=== PATIENT | female | born 1940 | race Asian ===

== ENCOUNTER → 2017-03-09 | Outpatient (CLI) | payer MEDICARE | LOC: WI 06:58 | PROVIDERS: ATTEND Family Medicine | DX: Z12.31 Encounter for screening mammogram for malignant neoplasm of breast (principal) | CPT/HCPCS: 77067; G0202 ==

== ENCOUNTER → 2017-08-02 | Outpatient (CLI) | payer MEDICARE ==
[2017-08-02 11:06] LABS: ALANINE AMINOTRANSFERASE 24 U/L (9-52); ALBUMIN 4.2 g/dL (3.5-5.0); ALKALINE PHOSPHATASE 80 U/L (38-126); ASPARTATE AMINO TRANSFERASE 29 U/L (14-36); BILIRUBIN,DIRECT 0.3 mg/dL (0.0-0.4); BILIRUBIN,TOTAL 0.5 mg/dL (0.2-1.3); CHOLESTEROL 148.42 mg/dL (0-200); Direct HDL 56 mg/dL (>40); MAGNESIUM 2.4 mg/dL (1.6-2.3); TOTAL PROTEIN 7.2 g/dL (6.3-8.2); TRIGLYCERIDES 126 mg/dL (<150)
[2017-08-02 11:13] LABS: ANION GAP 12 (5-19); BLOOD UREA NITROGEN 9 mg/dL (7-20); CALCIUM 9.4 mg/dL (8.4-10.2); CARBON DIOXIDE 28 mmol/L (22-30); CHLORIDE 107 mmol/L (98-107); CREATININE RESULT 0.76 mg/dL (0.52-1.25); GLUCOSE 99 mg/dL (75-110); POTASSIUM 4.6 mmol/L (3.6-5.0); SODIUM 146.8 mmol/L (137-145)
[2017-08-02 11:17] LABS: DIRECT LDL 63 mg/dL (<100)
== END ==
LOC: OD 10:04
PROVIDERS: ATTEND Internal Medicine Cardiovascular Disease
DX: E78.2 Mixed hyperlipidemia (principal); R00.2 Palpitations; Z79.899 Other long term (current) drug therapy
CPT/HCPCS: 36415; 80048; 80061; 80076; 83735; 84443

== ENCOUNTER → 2018-02-01 | Outpatient (CLI) | payer MEDICARE ==
[2018-02-01 10:55] LABS: ANION GAP 10 (5-19); BLOOD UREA NITROGEN 11 mg/dL (7-20); CALCIUM 9.9 mg/dL (8.4-10.2); CARBON DIOXIDE 29 mmol/L (22-30); CHLORIDE 107 mmol/L (98-107); GLUCOSE 96 mg/dL (75-110); POTASSIUM 4.5 mmol/L (3.6-5.0); SODIUM 146.2 mmol/L (137-145); TRIGLYCERIDES 225 mg/dL (<150)
[2018-02-01 11:06] LABS: DIRECT LDL 67 mg/dL (<100)
== END ==
LOC: OD 09:53
PROVIDERS: ATTEND Internal Medicine Cardiovascular Disease
DX: I10 Essential (primary) hypertension (principal); R00.2 Palpitations; E78.2 Mixed hyperlipidemia; Z79.899 Other long term (current) drug therapy
CPT/HCPCS: 36415; 80048; 80061; 84443

== ENCOUNTER → 2018-02-04 | Outpatient (CLI) | payer MEDICARE ==
--- NOTE | 2018-02-04 12:06 | WOMENS IMAGING REPORT ---
EXAM DESCRIPTION: BILAT SCREENING MAMMO W/CAD COMPLETED DATE/TIME: 02/04/2018 11:40 am REASON FOR STUDY: ROUTINE SCREENING;Z12.31 Z12.31 ENCNTR SCREEN MAMMOGRAM FOR MALIGNANT NEOPLASM OF HELENA COMPARISON: 03/09/2017 and 03/09/2016. TECHNIQUE: Standard craniocaudal and mediolateral oblique views of each breast recorded using digita l acquisition. LIMITATIONS: None. FINDINGS: No masses, calcifications or architectural distortion. No areas of suspicion. Read with the assistance of CAD. .[facility] - R2 Cenova Version 1.3 .[facility] - R2 Cenova Version 1.3 .[facility] - R2 Cenova Version 2.4 .[facility] - R2 Cenova Version 2.4 .[facility] - R2 Warehouse Inventory Clerk Version 9.2 IMPRESSION: NORMAL MAMMOGRAM. BIRADS 1. BREAST DENSITY: c. The breasts are heterogeneously dense, which may obscure small masses. BIRAD: 1 NEGATIVE RECOMMENDATION: ROUTINE SCREENING COMMENT: The patient has been notified of the results by letter per MQSA requirements. Additional no tification policies are in place for contacting patient with suspicious or incomplete findings. Quality ID #225: The [employer] [place] [employer] recommends an annual screening mammogram for women aged 40 years or over. This facility utilizes a reminder system to ensure that all patients receive reminder letters, and/or direct phone calls for appointments. This includes reminders for routine scr eening mammograms, diagnostic mammograms, or other Breast Imaging Interventions when appropriate. Th is patient will be placed in the appropriate reminder system. The [employer] [place] [employer] (ACR) has developed recommendations for screening MRI of the breast s in certain patient populations, to be used in conjunction with mammography. Breast MRI surveillanc e may be appropriate for women with more than 20% lifetime risk of developing breast cancer as deter mined by genetic testing, significant family history of the disease, or history of mantle radiation f or Hodgkins Disease. ACR Practice Guidelines 2008. TECHNICAL DOCUMENTATION: FINDING NUMBER: (1) ASSESSMENT: (1) JOB ID: [id number] [employer]- All Rights Reserved Reading location - IP/workstation name: [facility]-[email or web address]
== END ==
LOC: WI 09:53
PROVIDERS: ATTEND Family Medicine
DX: Z12.31 Encounter for screening mammogram for malignant neoplasm of breast (principal)
CPT/HCPCS: 77067

== ENCOUNTER 2018-06-17 08:25 | Day surgery (SDC) | payer MEDICARE ==
[2018-06-17] MEDS ORDERED: PROPOFOL INJ 200 MG/20 ML VIAL IV ONE (09:20)
[2018-06-17] MEDS ORDERED: DIPHENHYDRAMINE HCL 50 MG/ML VIAL IV PRN (10:26)
[2018-06-17] MEDS ORDERED: PROMETHAZINE HCL INJ 25 MG/1 ML VIAL IV PRN (10:26)
[2018-06-17] MEDS ORDERED: ONDANSETRON HCL INJ/PF 4 MG/2 ML SDV IV PRN (10:26)
--- NOTE | 2018-06-17 11:39 | Operative Report ---
Operative Report DATE OF SURGERY: 06/17/18 Operative Report: The risks, benefits and alternatives of the procedure including risks of bleeding, perforation requiring surgery are explained to the patient in detail and informed consent is obtained. Patient is brought back to the endoscopy suite and placed in the left, lateral decubital position. Timeout was called. Propofol medication is administered. A rectal examination is done which did not reveal any masses, tears or fissures. An Olympus videoscope was inserted into the patient's rectum. The scope was then carefully advanced all the way to the cecum. The cecum was identified by the usual anatomical landmarks including the ileocecal valve as well as the appendiceal office. Photodocumentation is obtained. The scope was then sequentially pulled back via the various segments of the colon including the ascending colon, hepatic flexure, transverse colon, splenic flexure, descending colon and finding to the rectosigmoid portions of the colon. Retroflexion maneuvers performed. The risks benefits and alternatives of the procedure explained to the patient in detail and informed consent is obtained.A GIF Olympus video scope was inserted into the patient's mouth and hypopharynx, the esophagus is identified intubated and insufflated, the scope was then advanced through the esophagus stomach and duodenum, retroflexion maneuver is done, the esophagus stomach and first and second portions of the duodenum examined PREOPERATIVE DIAGNOSIS: Dysphagia. Previously noted to have Helicobacter pylori that was not treated. Personal history of polyp POSTOPERATIVE DIAGNOSIS: Gastritis status post biopsy. Schatzki's ring status post biopsy and breakage. Hiatal hernia. Diverticulosis. Colon polyp in the sigmoid status post via biopsy. Internal hemorrhoids OPERATION: Colonoscopy with biopsy. EGD with biopsy SURGEON: GAY PALUMBO ANESTHESIA: LMAC TISSUE REMOVED OR ALTERED: As noted above. COMPLICATIONS: None. ESTIMATED BLOOD LOSS: None. INTRAOPERATIVE FINDINGS: As noted above. PROCEDURE: Patient tolerated the procedure well. No immediate postprocedure complications are noted. Patient discharged in good condition. Discharge date 06/17/2018. Discharge diet: Regular. Discharge activity: Regular. 2-3 week follow-up to discuss findings. Patient is instructed call the office or proceed to the emergency room should there be any further problems or questions.
[2018-06-17] MEDS ORDERED: DEXTROSE 5%-1/2 NORMAL SALINE 1,000 ML IV PRN (11:48)
[2018-06-17] MEDS ORDERED: ACETAMINOPHEN 325 MG TABLET PO PRN (12:00)
[2018-06-17] MEDS ORDERED: PROMETHAZINE HCL INJ 25 MG/1 ML VIAL INJ PRN (12:00)
[2018-06-17] MEDS ORDERED: SIMETHICONE 80 MG TAB.CHEW PO PRN (12:00)
[2018-06-17 13:16] VITALS: BP 152/69
--- NOTE | 2018-06-17 22:29 | EKG REPORT ---
SEVERITY:- NORMAL ECG - SINUS RHYTHM : Confirmed by: Lucia Ring MD 17-Jun-2018 22:28:46
== END 2018-06-17 12:30 | disposition home or self-care (01) ==
LOC: OROUT 08:25
PROVIDERS: ATTEND Internal Medicine Gastroenterology
DX: K63.5 Polyp of colon (principal); K57.30 Diverticulosis of large intestine without perforation or abscess without bleeding; B96.81 Helicobacter pylori [H. pylori] as the cause of diseases classified elsewhere; K64.8 Other hemorrhoids; K29.50 Unspecified chronic gastritis without bleeding; K22.2 Esophageal obstruction; K44.9 Diaphragmatic hernia without obstruction or gangrene; E78.2 Mixed hyperlipidemia; I10 Essential (primary) hypertension; K21.9 Gastro-esophageal reflux disease without esophagitis; M19.90 Unspecified osteoarthritis, unspecified site; F17.210 Nicotine dependence, cigarettes, uncomplicated; Z79.82 Long term (current) use of aspirin; Z79.899 Other long term (current) drug therapy; Z13.89 Encounter for screening for other disorder
CPT/HCPCS: 43239; 45380; 88342 ×2; 88305 ×2; 93005; 93010; J2704; 813

== ENCOUNTER 2018-07-29 08:20 | Day surgery (SDC) | payer MEDICARE ==
[~2018-07-29 08:20] MED LIST: DIPHENHYDRAMINE HCL 50 MG/ML VIAL ONE; EPINEPHRINE INJ 1 MG/10 ML DISP.SYRIN ONE; FENTANYL CITRATE INJ/PF 100 MCG/2 ML AMPUL ONE; FLUMAZENIL INJ 0.5 MG/5 ML VIAL ONE; GLUCAGON,HUMAN RECOMB 1 MG INJ ONE; NALOXONE HCL INJ/PF 0.4 MG/1 ML SDV ONE; ONDANSETRON HCL INJ/PF 4 MG/2 ML SDV ONE
[2018-07-29] MEDS: MIDAZOLAM 2 MG/2 ML INJ ONE ×3 (09:20→09:26)
--- NOTE | 2018-07-29 09:35 | Operative Report ---
Operative Report DATE OF SURGERY: 07/29/18 Operative Report: The risks benefits and alternatives of the procedure explained to the patient in detail and informed consent is obtained.A GIF Olympus video scope was inserted into the patient's mouth and hypopharynx, the esophagus is identified intubated and insufflated, the scope was then advanced through the esophagus stomach and duodenum, retroflexion maneuver is done, the esophagus stomach and first and second portions of the duodenum examined PREOPERATIVE DIAGNOSIS: History of H pylori gastritis. Barry's with dysplasia low-grade POSTOPERATIVE DIAGNOSIS: Duodenitis. Biopsies to reconfirm eradication of H. pylori. Radiofrequency ablation of Barry's esophagus OPERATION: EGD with ablation. EGD with biopsy SURGEON: GAY PALUMBO ANESTHESIA: Moderate Sedation - 4 mg of Versed, 25 mcg of fentanyl. Conscious sedation monitoring time 30 minutes. TISSUE REMOVED OR ALTERED: As noted above COMPLICATIONS: None. ESTIMATED BLOOD LOSS: None. INTRAOPERATIVE FINDINGS: As noted above. PROCEDURE: Patient tolerated procedure well. No immediate postprocedure complications are noted. Patient discharged in good condition. Discharge date 07/29/2018. Discharge diet: Regular. Discharge activity: Regular. 2-3 week follow-up to discuss findings. Patient is instructed to call the office or proceed to the emergency room should there be any further problems or questions. Wait on the pathology.
[2018-07-29 10:41] VITALS: BP 126/65
== END 2018-07-29 10:50 | disposition home or self-care (01) ==
LOC: END 08:20
PROVIDERS: ATTEND Internal Medicine Gastroenterology
DX: K29.50 Unspecified chronic gastritis without bleeding (principal); K29.80 Duodenitis without bleeding; K21.9 Gastro-esophageal reflux disease without esophagitis; I10 Essential (primary) hypertension; M19.90 Unspecified osteoarthritis, unspecified site; E78.5 Hyperlipidemia, unspecified; F17.210 Nicotine dependence, cigarettes, uncomplicated; Z79.899 Other long term (current) drug therapy; Z79.82 Long term (current) use of aspirin
CPT/HCPCS: 43270; 43239; 88342 ×2; 88305 ×2; J2250; J3010; J0171; J1200; J1610; J2310; J2405; J3490

== ENCOUNTER → 2018-09-08 | Outpatient (CLI) | payer MEDICARE ==
[2018-09-08 09:35] LABS: ANION GAP 9 (5-19); BLOOD UREA NITROGEN 13 mg/dL (7-20); CALCIUM 9.3 mg/dL (8.4-10.2); CARBON DIOXIDE 30 mmol/L (22-30); CHLORIDE 104 mmol/L (98-107); CHOLESTEROL 138.07 mg/dL (0-200); GLUCOSE 80 mg/dL (75-110); POTASSIUM 4.6 mmol/L (3.6-5.0); SODIUM 142.6 mmol/L (137-145); TRIGLYCERIDES 114 mg/dL (<150)
[2018-09-08 09:47] LABS: DIRECT LDL 59 mg/dL (<100)
== END ==
LOC: OD 07:52
PROVIDERS: ATTEND Internal Medicine Cardiovascular Disease
DX: E78.2 Mixed hyperlipidemia (principal); R00.2 Palpitations
CPT/HCPCS: 36415; 80048; 80061; 84443

== ENCOUNTER → 2018-10-21 | Outpatient (CLI) | payer MEDICARE ==
--- NOTE | 2018-10-21 11:29 | RADIOLOGY REPORT (SQ) ---
EXAM DESCRIPTION: CT ABD/PELVIS WITH IV ORAL COMPLETED DATE/TIME: 10/21/2018 10:36 am REASON FOR STUDY: R10.84 GENERALIZED ABDOMINAL PAIN R10.84 GENERALIZED ABDOMINAL PAIN COMPARISON: 05/05/2016 CT abdomen pelvis TECHNIQUE: CT scan of the abdomen and pelvis performed using helical scanning technique with dynamic intravenous contrast injection. Patient drank oral contrast. Images reviewed with lung, soft tissue , and bone windows. Reconstructed coronal and sagittal MPR images reviewed. Delayed images for evalua tion of the urinary system also acquired. All images stored on PACS. All CT scanners at this facility use dose modulation, iterative reconstruction, and/or weight based d osing when appropriate to reduce radiation dose to as low as reasonably achievable (ALARA). [facility]: Dose Right [facility]: CareDose [facility]: Dose Right [facility]: Teradose 4D [facility]: Cloud[employer] CONTRAST TYPE AND DOSE: contrast/concentration: Isovue 370.00 mg/ml; Total Contrast Delivered: 46.0 ml; Total Saline Delivered: 55.0 ml RENAL FUNCTION: Creatinine 1.5 RADIATION DOSE: CT Rad equipment meets quality standard of care and radiation dose reduction techniq ues were employed. CTDIvol: 2.3 - 3.3 mGy. DLP: 276 mGy-cm.. LIMITATIONS: None. FINDINGS: LOWER CHEST: Moderate left pleural effusion LIVER: Normal size. No masses. No dilated ducts. SPLEEN: Normal size. No focal lesions. PANCREAS: No masses. No significant calcifications. No adjacent inflammation or peripancreatic fluid collections. Pancreatic duct not dilated. GALLBLADDER: No identified stones by CT criteria. No inflammatory changes to suggest cholecystitis. ADRENAL GLANDS: No significant masses or asymmetry. RIGHT KIDNEY AND URETER: No solid masses. No significant calcifications. No hydronephrosis or hyd roureter. LEFT KIDNEY AND URETER: No solid masses. No significant calcifications. No hydronephrosis or hydr oureter. AORTA AND VESSELS: No aneurysm. No dissection. Renal arteries, SMA, celiac without stenosis. RETROPERITONEUM: Multiple retroperitoneal lymph nodes are present, the largest is along the left anna l vein, 3.1 x 2.2 cm in size. BOWEL AND PERITONEAL CAVITY: Is there is a moderate amount of ascites throughout the peritoneal space . Peritoneal implants are present in the adnexa and omentum. Findings are worrisome for peritoneal carcinomatosis, possibly from ovarian malignancy. Patient drank oral contrast. No CT evidence of bowel obstruction. No free intraperitoneal air. APPENDIX: Normal. PELVIS: Enlarged bilateral ovaries, peritoneal carcinomatosis in the posterior cul-de-sac. Moderate ascites in the pelvis. Uterus normal size. No adenopathy. ABDOMINAL WALL: No masses. No hernias. BONES: No significant or acute findings. OTHER: No other significant finding. IMPRESSION: Malignant ascites with peritoneal carcinomatosis. Suspect ovarian cancer. Report gutierres d to Dr. Huerta's nurse TECHNICAL DOCUMENTATION: JOB ID: [id number] Quality ID # [id number]: Final reports with documentation of one or more dose reduction techniques (e.g., Au tomated exposure control, adjustment of the mA and/or kV according to patient size, use of iterative reconstruction technique) 2010 [employer]- All Rights Reserved Reading location - IP/workstation name: [facility]-[email or web address]
== END ==
LOC: RAD 10:26
PROVIDERS: ATTEND Family Medicine
DX: R10.84 Generalized abdominal pain (principal)
CPT/HCPCS: 74177; 82565

== ENCOUNTER 2018-11-03 10:46 | Day surgery (SDC) | payer MEDICARE ==
[2018-11-03 11:31] LABS: HEMATOCRIT 33.2 % (36.0-47.0); MEAN CORPUSCULAR HEMOGLOBIN 28.9 pg (27.0-33.4); MEAN CORPUSCULAR HGB CONC 33.1 g/dL (32.0-36.0); MEAN CORPUSCULAR VOLUME 87 fl (80-97); PLATELET COUNT 405 10^3/uL (150-450); WHITE BLOOD COUNT 6.4 10^3/uL (4.0-10.5)
[2018-11-03 11:32] LABS: INTERNATIONAL RATION (INR) 0.97; PROTHROMBIN TIME 13.4 SEC (11.4-15.4)
[2018-11-03 11:33] LABS: PARTIAL THROMBOPLASTIN TIME 41.2 SEC (23.5-35.8)
[2018-11-03 11:46] LABS: BLOOD UREA NITROGEN 10 mg/dL (7-20)
--- NOTE | 2018-11-03 15:00 | RADIOLOGY REPORT (SQ) ---
EXAM DESCRIPTION: U/S ABD PARACENTESIS COMPLETED DATE/TIME: 11/03/2018 2:41 pm REASON FOR STUDY: ASCITES R18.8 OTHER ASCITES Z79.01 NURSING HOME (CURRENT) USE OF ANTICOAGULANTS COMPARISON: None. LIMITATIONS: None. PROCEDURE: Procedure, risks, benefit, and alternative explained to patient who then gave written con sent. The right lower quadrant abdominal wall marked using ultrasound guidance. A time-out was call ed for correct marking verification. Abdomen prepped and draped using sterile technique. Local anest hesia achieved using Three ml of 1% lidocaine injection. A 6fr Opcd-Z-Lxpqvikw set was introduced in to the peritoneal cavity. Fluid was drained. The catheter was removed and entry site was covered wi th sterile bandage. No immediate complications noted. Images acquired during the procedure were stored on PACS. FINDINGS: ENTRY SITE: Right lower quadrant. FLUID VOLUME: 900 cc FLUID ANALYSIS: Dark linda OTHER: Fluid sent to the lab for testing. IMPRESSION: SUCCESSFUL ULTRASOUND GUIDED PARACENTESIS. COMMENT: Patient medication list reviewed:Yes- Quality ID# [id number]:Eligible professional attests to docu menting in the medical record they obtained, updated, or reviewed the patient's current medications. TECHNICAL DOCUMENTATION: JOB ID: [id number] [email or web address]- All Rights Reserved Reading location - IP/workstation name: [facility]
[2018-11-03 15:22] LABS: FLUID TYPE PERITONEAL
[2018-11-03 15:23] LABS: FLUID APPEARANCE HAZY; FLUID COLOR AMBER; FLUID SOURCE ABDOMEN; FLUID VISCOSITY LIQUID
[2018-11-03 15:47] VITALS: BP 140/70
== END 2018-11-03 15:20 | disposition home or self-care (01) ==
LOC: RAD 10:46
PROVIDERS: ATTEND Internal Medicine
DX: R18.8 Other ascites (principal); C56.1 Malignant neoplasm of right ovary; E78.5 Hyperlipidemia, unspecified; I10 Essential (primary) hypertension; Z79.82 Long term (current) use of aspirin; K21.9 Gastro-esophageal reflux disease without esophagitis; Z79.899 Other long term (current) drug therapy; M19.90 Unspecified osteoarthritis, unspecified site; F17.210 Nicotine dependence, cigarettes, uncomplicated
CPT/HCPCS: 36415; 49083; 82565; 84520; 85027; 85610; 85730; 87070; 87075; 87205; 88305; 88341; 88342; 89050; 96365

== ENCOUNTER → 2018-11-06 | Outpatient (CLI) | payer MEDICARE ==
--- NOTE | 2018-11-07 09:17 | RADIOLOGY REPORT (SQ) ---
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 TECHNIQUE: Blood glucose level was verified. Above dose of FDG was injected intravenously. 2-D seg mented attenuation correction images were obtained from the base of the skull to the midthighs. Nonc ontrast CT images were obtained for attenuation correction and fusion with emission images. CT image s were performed without oral or intravenous contrast and are not sensitive for parenchymal lesions. A series of overlapping emission PET images were obtained. Images [facility] and [facility] by the radiologist. Images stored on PACS. LIMITATIONS: None. FINDINGS: HEAD AND NECK: Less than 5 mm supraclavicular lymph node on the left, SUV 2.0. CHEST: Prevascular adenopathy 2.6 x 0.8 cm in size with SUV 5.3 Aortopulmonary window lymph nodes 2.3 x 1 cm SUV 3.5 Moderate left pleural effusion with minimal left pleural uptake, similar compared to CT 10/21/2018 ABDOMEN AND PELVIS: Diffuse peritoneal implants are present, ranging in metabolic activity from 6.5 to 8.5. Left retroperitoneal adenopathy 3.1 x 2.2 cm in size with SUV 5.3 Small amount of ascites in the abdomen and pelvis, decreased compared to CT abdomen pelvis 10/21/2018 PROXIMAL LOWER EXTREMITIES: No areas of abnormal metabolic activity in the soft tissues of the lower extremities. BONES: No abnormal metabolic activity in the visualized skeleton. ADDITIONAL CT FINDINGS: Colonic diverticuli without CT signs of acute diverticulitis. OTHER: No other significant findings. IMPRESSION: Left supraclavicular, prevascular, aortopulmonary window and retroperitoneal malignant l ymph nodes Diffuse peritoneal implants TECHNICAL DOCUMENTATION: JOB ID: [id number]- All Rights Reserved Reading location - IP/workstation name: [email or web address]
== END ==
LOC: RAD 17:25
PROVIDERS: ATTEND Internal Medicine
DX: C56.1 Malignant neoplasm of right ovary (principal)
CPT/HCPCS: 78815; A9552

== ENCOUNTER → 2018-11-11 | Day surgery (SDC) | payer MEDICARE ==
[~2018-11-11] MED LIST changes: -DIPHENHYDRAMINE HCL 50 MG/ML VIAL ONE; -EPINEPHRINE INJ 1 MG/10 ML DISP.SYRIN ONE; -FENTANYL CITRATE INJ/PF 100 MCG/2 ML AMPUL ONE; -FLUMAZENIL INJ 0.5 MG/5 ML VIAL ONE; -GLUCAGON,HUMAN RECOMB 1 MG INJ ONE; +LIDOCAINE 1% INJ-PF (10 MG/ML) 30 ML SDV ONE; +MIDAZOLAM 2 MG/2 ML INJ ONE; -NALOXONE HCL INJ/PF 0.4 MG/1 ML SDV ONE; -ONDANSETRON HCL INJ/PF 4 MG/2 ML SDV ONE
[2018-11-11 09:48] LABS: HEMATOCRIT 32.5 % (36.0-47.0); HEMOGLOBIN 10.7 g/dL (12.0-15.5); MEAN CORPUSCULAR HEMOGLOBIN 28.9 pg (27.0-33.4); MEAN CORPUSCULAR HGB CONC 32.8 g/dL (32.0-36.0); MEAN CORPUSCULAR VOLUME 88 fl (80-97); PLATELET COUNT 288 10^3/uL (150-450); RED BLOOD COUNT 3.69 10^6/uL (3.72-5.28); RED CELL DISTRIBUTION WIDTH 18.8 % (11.5-14.0); WHITE BLOOD COUNT 4.3 10^3/uL (4.0-10.5)
[2018-11-11 09:53] LABS: INTERNATIONAL RATION (INR) 0.94
[2018-11-11 09:54] LABS: PARTIAL THROMBOPLASTIN TIME 36.8 SEC (23.5-35.8)
[2018-11-11 10:09] LABS: BLOOD UREA NITROGEN 10 mg/dL (7-20)
--- NOTE | 2018-11-11 13:13 | RADIOLOGY REPORT (SQ) ---
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 CT Fluoroscopy Time: 5.[address] scanners at this facility use dose modulation, iterative reconstruction, and/or weight based d osing when appropriate to reduce radiation dose to as low as reasonably achievable (ALARA). [facility]: Dose Right [facility]: CareDose [facility]: Dose Right [facility]: Teradose 4D [facility]: Smart [employer] RADIATION DOSE: mGy. FINDINGS: After obtaining informed consent and explaining the risks and benefits of conscious sedati on,the patient agreed to the procedure. Prior to the procedure, a time out was performed to verify th e patient's identity and planned procedure. IV sedation was administered and physician direction by the registered nurse using 1.5 milligrams of Versed, for conscious sedation. Patient is allergic to opioid medications. Physiologic monitoring w as provided before, during, and after sedation. The total sedation time was 30 minutes. Documentation face to face time, the performing proceduralist, spent monitoring the patient: [address] scanning was performed to localize the percutaneous site for the biopsy approach. After sterile skin prep and local lidocaine for skin and deep tissue anesthesia, a coaxial 19 gauge b iopsy needle was used to obtain multiple cores of tissue from the left retroperitoneal lymph nodes ju st inferior to the level of the left renal artery and vein. The biopsy tissue was submitted to Chika garcia from cytology. She stated that the samples were adequate for tissue diagnosis. There were no immed iate complications. Pathology is pending at the time of dictation. IMPRESSION: CT GUIDED BIOPSY OF THE LEFT RETROPERITONEAL LYMPH NODES PERFORMED WITHOUT IMMEDIATE COM PLICATION. PATHOLOGY PENDING. COMMENT: Quality ID 145: Final reports for procedures using fluoroscopy that document radiation exp osure indices, or exposure time and number of fluorographic images (if radiation exposure indices are not available) Patient medication list reviewed: Yes- Quality ID# 130:Eligible professional attests to documenting i n the medical record they obtained, updated, or reviewed the patient's current medications.. TECHNICAL DOCUMENTATION: JOB ID: [id number] Quality ID# 436: Final reports with documentation of one or more dose reduction techniques (e.g., Aut omated exposure control, adjustment of the mA and/or kV according to patient size, use of iterative r econstruction technique) 2010 [employer]- All Rights Reserved Reading location - IP/workstation name: [facility]
--- NOTE | 2018-11-11 13:13 | RADIOLOGY REPORT (SQ) ---
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 CT Fluoroscopy Time: 5.[address] scanners at this facility use dose modulation, iterative reconstruction, and/or weight based d osing when appropriate to reduce radiation dose to as low as reasonably achievable (ALARA). [facility]: Dose Right [facility]: CareDose [facility]: Dose Right [facility]: Teradose 4D [facility]: [employer] RADIATION DOSE: mGy. FINDINGS: After obtaining informed consent and explaining the risks and benefits of conscious sedati on,the patient agreed to the procedure. Prior to the procedure, a time out was performed to verify th e patient's identity and planned procedure. IV sedation was administered and physician direction by the registered nurse using 1.5 milligrams of Versed, for conscious sedation. Patient is allergic to opioid medications. Physiologic monitoring w as provided before, during, and after sedation. The total sedation time was 30 minutes. Documentation face to face time, the performing proceduralist, spent monitoring the patient: [address] scanning was performed to localize the percutaneous site for the biopsy approach. After sterile skin prep and local lidocaine for skin and deep tissue anesthesia, a coaxial 19 gauge b iopsy needle was used to obtain multiple cores of tissue from the left retroperitoneal lymph nodes ju st inferior to the level of the left renal artery and vein. The biopsy tissue was submitted to Chika garcia from cytology. She stated that the samples were adequate for tissue diagnosis. There were no immed iate complications. Pathology is pending at the time of dictation. IMPRESSION: CT GUIDED BIOPSY OF THE LEFT RETROPERITONEAL LYMPH NODES PERFORMED WITHOUT IMMEDIATE COM PLICATION. PATHOLOGY PENDING. COMMENT: Quality ID 145: Final reports for procedures using fluoroscopy that document radiation exp osure indices, or exposure time and number of fluorographic images (if radiation exposure indices are not available) Patient medication list reviewed: Yes- Quality ID# 130:Eligible professional attests to documenting i n the medical record they obtained, updated, or reviewed the patient's current medications.. TECHNICAL DOCUMENTATION: JOB ID: [id number] Quality ID# 436: Final reports with documentation of one or more dose reduction techniques (e.g., Aut omated exposure control, adjustment of the mA and/or kV according to patient size, use of iterative r econstruction technique) 2010 [employer]- All Rights Reserved Reading location - IP/workstation name: [facility]
[2018-11-11 14:47] VITALS: BP 120/60
== END | disposition home or self-care (01) ==
LOC: RAD 08:22
PROVIDERS: ATTEND Internal Medicine
DX: C56.1 Malignant neoplasm of right ovary (principal); R59.1 Generalized enlarged lymph nodes; M19.90 Unspecified osteoarthritis, unspecified site; E78.5 Hyperlipidemia, unspecified; I10 Essential (primary) hypertension; K21.9 Gastro-esophageal reflux disease without esophagitis; Z79.82 Long term (current) use of aspirin; Z79.899 Other long term (current) drug therapy; F17.210 Nicotine dependence, cigarettes, uncomplicated; Z79.01 Long term (current) use of anticoagulants
CPT/HCPCS: 36415; 84520; 82565; 85027; 85610; 85730; 88342 ×2; 88341 ×2; 88305 ×2; 77012; 49180; J2250; J3490

== ENCOUNTER → 2019-01-27 | Outpatient (CLI) | payer MEDICARE ==
--- NOTE | 2019-01-27 10:36 | RADIOLOGY REPORT (SQ) ---
EXAM DESCRIPTION: CT CHEST WITH; CT ABD/PELVIS WITH IV ORAL COMPLETED DATE/TIME: 01/27/2019 9:37 am REASON FOR STUDY: OVARIAN CA C56.1 MALIGNANT NEOPLASM OF RIGHT OVARY COMPARISON: CT chest 10/31/2008 CT abdomen pelvis 05/05/2016, 10/21/2018 PET-CT 11/06/2018 CONTRAST TYPE AND DOSE: contrast/concentration: Isovue 350.00 mg/ml; Total Contrast Delivered: 45.0 ml; Total Saline Delivered: 51.0 ml RENAL FUNCTION: Creatinine 0.7 TECHNIQUE: CT scan of the chest performed using helical scanning technique with dynamic intravenous contrast injection. Images reviewed with lung, soft tissue and bone windows. Reconstructed coronal a nd sagittal MPR images reviewed. All images stored on PACS. CT scan of the abdomen and pelvis performed with intravenous and with oral contrastusing helical scan zoey technique with dynamic intravenous contrast injection. Images reviewed with lung, soft tissue a nd bone windows. Reconstructed coronal and sagittal MPR images reviewed. Delayed images for evaluat ion of the urinary system also acquired and evaluated. All images stored on PACS. All CT scanners at this facility use dose modulation, iterative reconstruction, and/or weight based d osing when appropriate to reduce radiation dose to as low as reasonably achievable (ALARA). [facility]: Dose Right [facility]: CareDose [facility]: Dose Right [facility]: Teradose 4D [facility]: [employer] RADIATION DOSE: CT Rad equipment meets quality standard of care and radiation dose reduction techniq ues were employed. CTDIvol: 4.4 - 4.5 mGy. DLP: 574 mGy-cm. . LIMITATIONS: None. FINDINGS: CHEST: LUNGS AND PLEURA: Obstructive lung disease is present with pulmonary fibrosis at the lung bases. No worrisome pulmonary nodules. No pleural effusion. No focal infiltrates. Airways are patent. HILAR AND MEDIASTINAL STRUCTURES: No identified masses or abnormal nodes. HEART AND VASCULAR STRUCTURES: No aneurysm or dissection. No central pulmonary emboli. No pericardi al effusion. HARDWARE: None. THYROID AND OTHER SOFT TISSUES: No masses. No adenopathy. BONES: No significant finding. OTHER: No other significant finding. ABDOMEN AND PELVIS: LIVER: Normal size. No masses. No dilated ducts. SPLEEN: Normal size. No focal lesions. PANCREAS: No masses. No significant calcifications. No adjacent inflammation or peripancreatic fluid collections. Pancreatic duct not dilated. GALLBLADDER: No identified stones by CT criteria. No inflammatory changes to suggest cholecystitis. ADRENAL GLANDS: No significant masses or asymmetry. RIGHT KIDNEY AND URETER: No solid masses. No significant calcification. No hydronephrosis or hydroure ter. LEFT KIDNEY AND URETER: No solid masses. No significant calcification. No hydronephrosis or hydrouret er. AORTA AND VESSELS: No aneurysm. No dissection. Renal arteries, SMA, celiac without stenosis. RETROPERITONEUM: No retroperitoneal adenopathy, hemorrhage or masses. Previously biopsied adenopathy has resolved. BOWEL AND PERITONEAL CAVITY: Patient drank oral contrast. No bowel obstruction. No masses or inflam matory changes. No free fluid or peritoneal masses. APPENDIX: Normal. ABDOMINAL WALL: No masses. No hernias. PELVIS: No mass or free fluid. Normal bladder. Normal size female pelvic organs. BONES: No significant or acute findings. OTHER: No other significant finding. IMPRESSION: No CT evidence of metastatic ovarian cancer to the chest abdomen or pelvis TECHNICAL DOCUMENTATION: JOB ID: [id number] Quality ID # 436: Final reports with documentation of one or more dose reduction techniques (e.g., Au tomated exposure control, adjustment of the mA and/or kV according to patient size, use of iterative reconstruction technique) 2010 [employer]- All Rights Reserved Reading location - IP/workstation name: [facility]
== END ==
LOC: RAD 08:42
PROVIDERS: ATTEND Internal Medicine
DX: C56.1 Malignant neoplasm of right ovary (principal); J84.10 Pulmonary fibrosis, unspecified
CPT/HCPCS: 71260; 74177; 82565

== ENCOUNTER 2019-02-21 10:19 | Emergency (ER) | payer MEDICARE ==
[2019-02-21] MEDS ORDERED: ONDANSETRON HCL INJ/PF 4 MG/2 ML SDV IV ONE ×2 (10:43→16:08)
[2019-02-21] MEDS ORDERED: NORMAL SALINE 1000 ML 1,000 ML IV ONE (10:43)
--- NOTE | 2019-02-21 10:46 | ER Document Report ---
ED Medical Screen (RME) - General Chief Complaint: Abdominal Pain Stated Complaint: WEAKNESS Time Seen by Provider: 02/21/19 10:35 Primary Care Provider: SONIDO GUEVARA MD [Primary Care Provider] - Follow up as needed TRAVEL OUTSIDE OF THE [place] IN LAST 30 DAYS: No - HPI Notes: 02/21/19 10:44 Patient is a 79-year-old female who presents emergency department complaining of generalized abdominal pain, decreased p.o. intake, nausea, watery diarrhea after having surgery for ovarian cancer 8 days ago which I suspect to be a total hysterectomy at [facility]. Patient states that the pain increased over the last 2 days. Denies any headache, fever, neck pain, URI, sore throat, chest pain, palpitations, syncope, cough, shortness of breath, wheeze, dyspnea, urinary retention, dysuria, hematuria, or rash. I have treated and performed a rapid initial assessment of this patient. A comprehensive ED assessment and evaluation of the patient, analysis of test results and completion of medical decision making process will be conducted by additional ED providers. PHYSICAL EXAMINATION: GENERAL: appears uncomfortable and holding her abd. no resp distress LUNGS: Breath sounds clear to auscultation bilaterally and equal. No wheezes rales or rhonchi. HEART: Regular rate and rhythm without murmurs, rubs, gallops. ABDOMEN: BS present. + generalized tenderness. Extremities: No cyanosis, clubbing, or edema b/l. NEUROLOGICAL: Normal speech, normal gait. PSYCH: Normal mood, normal affect. - Related Data Allergies/Adverse Reactions: Any type medication Allergy (Severe, Uncoded 06/17/18 09:21) Facial swelling and Problems Breathing Past Medical History - Social History Frequency of alcohol use: None Drug Abuse: None - Past Medical History Cardiac Medical History: Reports: Hx Hypercholesterolemia, Hx Hypertension Denies: Hx Coronary Artery Disease, Hx Heart Attack Pulmonary Medical History: Denies: Hx Asthma, Hx Bronchitis, Hx COPD, Hx Pneumonia Neurological Medical History: Denies: Hx Cerebrovascular Accident, Hx Seizures Renal/ Medical History: Denies: Hx Peritoneal Dialysis Musculoskeltal Medical History: Reports Hx Arthritis Past Surgical History: Reports: Hx Hysterectomy. Denies: Hx Pacemaker - Immunizations Hx Diphtheria, Pertussis, Tetanus Vaccination: No Influenza Administration Date for 08/2017 - 01/2018 Season: 11/22/17 Physical Exam - Vital signs Vitals: Temp Pulse Resp BP Pulse Ox 97.7 F 115 H 18 140/55 H 98 02/21/19 10:31 02/21/19 10:31 02/21/19 10:31 02/21/19 10:31 02/21/19 10:31 Course - Vital Signs Vital signs: Temp Pulse Resp BP Pulse Ox 97.7 F 115 H 18 140/55 H 98 02/21/19 10:31 02/21/19 10:31 02/21/19 10:31 02/21/19 10:31 02/21/19 10:31 Doctor's Discharge - Discharge Referrals: SONIDO GUEVARA MD [Primary Care Provider] - Follow up as needed
[2019-02-21 11:29] LABS: ABSOLUTE LYMPHOCYTES (AUTO) 1.4 10^3/uL (0.5-4.7); ABSOLUTE MONOCYTES (AUTO) 0.8 10^3/uL (0.1-1.4); ABSOLUTE NEUT (AUTO) 8.2 10^3/uL (1.7-8.2); APPEARANCE,URINE SLIGHTLY-CLOUDY; BASOPHILS % (AUTO) 0.1 % (0-2); BILIRUBIN,URINE NEGATIVE (NEGATIVE); COLOR,URINE YELLOW; EOSINOPHILS % (AUTO) 0.1 % (0-6); GLUCOSE, URINE NEGATIVE (NEGATIVE); HEMATOCRIT 32.1 % (36.0-47.0); HEMOGLOBIN 11.1 g/dL (12.0-15.5); KETONES,URINE 20 mg/dL (NEGATIVE); LEUKOCYTE ESTERASE,URINE NEGATIVE (NEGATIVE); LYMPHOCYTES % (AUTO) 13.6 % (13-45); MEAN CORPUSCULAR HEMOGLOBIN 33.6 pg (27.0-33.4); MEAN CORPUSCULAR HGB CONC 34.7 g/dL (32.0-36.0); MEAN CORPUSCULAR VOLUME 97 fl (80-97); MONOCYTES % (AUTO) 7.7 % (3-13); NITRITE,URINE NEGATIVE (NEGATIVE); PLATELET COUNT 318 10^3/uL (150-450); PROTEIN,URINE 30 mg/dL (NEGATIVE); RED BLOOD COUNT 3.32 10^6/uL (3.72-5.28); RED CELL DISTRIBUTION WIDTH 18.6 % (11.5-14.0); SEGMENTED NEUTROPHILS % (AUTO) 78.5 % (42-78); TOTAL CELLS COUNTED % (AUTO) 100 %; URINE SPECIFIC GRAVITY 1.016; WHITE BLOOD COUNT 10.4 10^3/uL (4.0-10.5)
[2019-02-21 11:50] LABS: ALANINE AMINOTRANSFERASE 32 U/L (9-52); ALBUMIN 3.8 g/dL (3.5-5.0); ALKALINE PHOSPHATASE 300 U/L (38-126); ANION GAP 16 (5-19); ASPARTATE AMINO TRANSFERASE 40 U/L (14-36); BILIRUBIN,DIRECT 0.7 mg/dL (0.0-0.4); BILIRUBIN,TOTAL 1.2 mg/dL (0.2-1.3); BLOOD UREA NITROGEN 19 mg/dL (7-20); CALCIUM 8.9 mg/dL (8.4-10.2); CARBON DIOXIDE 24 mmol/L (22-30); CHLORIDE 96 mmol/L (98-107); GLUCOSE 129 mg/dL (75-110); LIPASE 36.3 U/L (23-300); POTASSIUM 3.4 mmol/L (3.6-5.0); SODIUM 136.1 mmol/L (137-145); TOTAL PROTEIN 7.5 g/dL (6.3-8.2)
--- NOTE | 2019-02-21 11:54 | ER Document Report ---
ED GI/ - General Chief Complaint: Abdominal Pain Stated Complaint: WEAKNESS Time Seen by Provider: 02/21/19 10:35 Primary Care Provider: SONIDO GUEVARA MD [ACTIVE STAFF] - Follow up as needed Notes: Patient had surgery 8 days ago at [facility] to remove all of her female parts. She was diagnosed with ovarian cancer several months ago. She had 3 treatments with chemo and then it was decided she needed to have surgery. Surgery was performed at [facility] and the patient went home Wednesday. Since then, she is not eating, not drinking much fluid. She is nauseated but not vomiting. She had 2 watery diarrhea episodes this morning. Complaining of pain over the entire abdomen, but primarily in the left upper quadrant region. Has not noted any fever. TRAVEL OUTSIDE OF THE [place] IN LAST 30 DAYS: No - Related Data Allergies/Adverse Reactions: Any type medication Allergy (Severe, Uncoded 06/17/18 09:21) Facial swelling and Problems Breathing Past Medical History - Social History Smoking Status: Former Smoker - Stopped about 3 or 4 years ago. Frequency of alcohol use: None Drug Abuse: None Family History: Reviewed & Not Pertinent Patient has suicidal ideation: No Patient has homicidal ideation: No - Past Medical History Cardiac Medical History: Reports: Hx Hypercholesterolemia, Hx Hypertension Musculoskeletal Medical History: Reports Hx Arthritis Past Surgical History: Reports: Hx Hysterectomy - Immunizations Hx Diphtheria, Pertussis, Tetanus Vaccination: No Review of Systems - Review of Systems Notes: REVIEW OF SYSTEMS: CONSTITUTIONAL : Denies fever. EENT: Denies eye, ear, nose or mouth or throat pain or other symptoms. CARDIOVASCULAR: Denies chest pain. RESPIRATORY: Denies cough, chest congestion, or shortness of breath. GASTROINTESTINAL: See HPI. GENITOURINARY: Denies difficulty or painful urinating, urinary frequency, blood in urine. MUSCULOSKELETAL: Denies back or neck pain. Denies joint pain or swelling. SKIN: Denies rash or skin lesions. NEUROLOGICAL: Denies LOC or altered mental status. Denies headache. Denies sensory loss or motor deficits. ALL OTHER SYSTEMS REVIEWED AND NEGATIVE. Physical Exam - Vital signs Vitals: Temp Pulse Resp BP Pulse Ox 97.7 F 115 H 18 140/55 H 98 02/21/19 10:31 02/21/19 10:31 02/21/19 10:31 02/21/19 10:31 02/21/19 10:31 Interpretation: Tachycardic. No: Febrile Notes: PHYSICAL EXAMINATION: GENERAL: Well-appearing, in no acute distress. Vital signs are all normal except for slight tachycardia. HEAD: Atraumatic, normocephalic. EYES: Pupils equal round and reactive to light, extraocular movements intact. ENT: oropharynx clear without exudates. Moist mucous membranes. NECK: Normal range of motion, supple. LUNGS: Breath sounds clear and equal bilaterally. HEART: Regular rate and rhythm without murmurs. ABDOMEN: Laparoscopic entry sites in the abdomen all look well and without evidence of infection. Basically, the abdomen is soft but does have diffuse tenderness, may be more so in the upper abdomen than lower. BACK: No tenderness throughout entire back. EXTREMITIES: Normal range of motion without pain. NEUROLOGICAL: Normal speech, normal gait. Normal sensory, motor, and reflex exams. Awake, alert, and oriented x3. Cranial nerves normal. PSYCH: Normal mood, normal affect. SKIN: Warm, dry, no rashes. Course - Re-evaluation Re-evalutation: 02/21/19 16:12 Lab results were not very significantly abnormal. Potassium was 3.4 and the patient was given 40 mEq of p.o. potassium. Creatinine and BUN were normal. LFTs essentially normal except for slightly elevated alkaline phosphatase of 300. Lipase 36. CBC had a white count of 10,400. Hemoglobin 11.1. Urinalysis without any evidence of infection. 02/21/19 16:32 At the time of discharge, nurse took vital signs and found the patient to be febrile. Rectal temp about 102. says the patient has been running some fevers in the evenings since coming home. They did not tell me this earlier. We have done a chest x-ray here which did not show any acute pulmonary disease. We have done a urinalysis which did not look like any infection. We have also done a CBC showing a white count of only 10,000 without any significant shift. Has been ambulating around the emergency depart . I have ordered a couple of blood cultures and I have decided to give the patient 1 gram of Rocephin IV and still plan on letting the patient go to follow-up tomorrow morning as scheduled with Dr. Mccarty. - Vital Signs Vital signs: Temp Pulse Resp BP Pulse Ox 102.6 F H 108 H 20 125/45 L 95 02/21/19 16:27 02/21/19 15:32 02/21/19 15:32 02/21/19 15:32 02/21/19 15:32 - Laboratory Result Diagrams: 02/21/19 10:52 02/21/19 10:52 Laboratory results interpreted by me: 02/21/19 02/21/19 02/21/19 10:52 10:52 10:52 RBC 3.32 L Hgb 11.1 L Hct 32.1 L MCH 33.6 H RDW 18.6 H Seg Neutrophils % 78.5 H Sodium 136.1 L Potassium 3.4 L Chloride 96 L Glucose 129 H Direct Bilirubin 0.7 H AST 40 H Alkaline Phosphatase 300 H Urine Protein 30 H Urine Ketones 20 H Urine Blood MODERATE H Urine Urobilinogen 4.0 H - Diagnostic Test Radiology reviewed: Image reviewed, Reports reviewed - CT of the abdomen showed moderate amount of fluid of ascites and free air, both findings consistent with recent abdominal surgical procedure. Patient showed gas and stool in the rec pinky. Discharge - Discharge Clinical Impression: Postoperative abdominal pain, Nausea, Hypokalemia Condition: Stable Disposition: HOME, SELF-CARE Additional Instructions: ABDOMINAL PAIN: There are many causes of abdominal pain. Pain can mean a serious problem requiring surgery (such as appendicitis). It can also be an innocent problem that goes away on its own (such as a viral infection). Often, time must pass to determine the cause of pain. The physician does not feel that hospitalization is necessary, at present. Things may change within the next 24 hours. Call the doctor or come back for re- examination if any problems occur, such as: (1) Pain that becomes more severe, steady, or becomes concentrated in one specific area. Also, pain that is more severe with movement or coughing. (2) Vomiting that persists or becomes more frequent. (3) Blood in the vomitus, urine, or bowel movements. Blood in the stool may have a tarry or black appearance. (4) Shaking chills or fever greater than 100 degrees F. (5) The abdomen becomes more distended or swollen. (6) Bowel movements cease. (7) Failure to improve as expected. NORMAL EXAM AND WORKUP: At this time, your examination and workup show no significant abnormality. No significant abnormal physical findings are noted. All laboratory, EKG, and imaging (x-ray, CT scans, ultrasound) studies that were ordered show no significant abnormality. Although your examination and all studies that were ordered showed no significant abnormal finding, there are no examinations and no studies that are 100% accurate. There is always the possibility that some abnormality could exist and not be detected with physical examination or within the limits and capabilities of laboratory and other studies. You should return or follow up as you were instructed on your visit today for further evaluation if your symptoms do not resolve. ANTINAUSEA MEDICATION: You have been given a medication to suppress nausea and vomiting. This type of medication can be given as a shot, pill, or suppository. It will usually last for many hours. Pills and shots usually last six to eight hours, suppositories last about 12 hours. For the typical illness, only one or two doses of the medication may be necessary. Mild lightheadedness may occur. This type of medicine can cause drowsiness. Do not drive or operate dangerous machinery while under its influence. Do not mix with alcohol. See your doctor at once if you have muscle spasms or tightness, or uncontrollable motions (particularly of the neck, mouth, or jaw). Persistent vo miting or severe lightheadedness should also be evaluated by the physician. FOLLOW-UP CARE: If you have been referred to a physician for follow-up care, call the physicians office for an appointment as you were instructed or within the next two days. If you experience worsening or a significant change in your symptoms, notify the physician immediately or return to the Emergency Department at any time for re-evaluation. I have spoken with ' nurse (the doctor has left the office already) and they can see you tomorrow at 10:40 AM Prescriptions: Ondansetron [Zofran Odt 4 mg Tablet] 1 - 2 tab PO Q4HP PRN #15 tab.rapdis PRN Reason: For Nausea/Vomiting Referrals: SONIDO GUEVARA MD [ACTIVE STAFF] - Follow up as needed
--- NOTE | 2019-02-21 11:56 | RADIOLOGY REPORT (SQ) ---
EXAM DESCRIPTION: ACUTE ABDOMEN SERIES COMPLETED DATE/TIME: 02/21/2019 11:13 am REASON FOR STUDY: abd pain, total hysterect for ovar. CA x8d COMPARISON: None. NUMBER OF VIEWS: Three views. TECHNIQUE: Frontal chest, supine abdomen and upright/decubitus abdomen radiographic images acquired. LIMITATIONS: None. FINDINGS: CHEST: Lungs clear of infiltrates. FREE AIR: None. No abnormal gas collections. There is extraperitoneal subcutaneous air about the rig ht costal margin. BOWEL GAS PATTERN: Gas-filled, nondistended loops of bowel in the mid abdomen with scattered gas and stool present to the rectum. CALCIFICATIONS: No suspicious calcifications. HARDWARE: None in the abdomen. SOFT TISSUES: No gross mass or suggestion of organomegaly. BONES: No acute fracture. No worrisome bone lesions. OTHER: No other significant finding. IMPRESSION: 1. No acute abnormality of the lungs. 2. Gas-filled, nondistended loops of bowel in the mid abdomen with scattered gas and stool present to the rectum. No free air in the abdomen. 3. There is extraperitoneal subcutaneous air about the right costal margin, possibly related to recen t surgery. TECHNICAL DOCUMENTATION: JOB ID: [id number] [employer]- All Rights Reserved Reading location - IP/workstation name: [email or web address]
--- NOTE | 2019-02-21 14:40 | RADIOLOGY REPORT (SQ) ---
EXAM DESCRIPTION: CT ABD/PELVIS WITH IV ORAL COMPLETED DATE/TIME: 02/21/2019 2:15 pm REASON FOR STUDY: abd pain, total hysterect for ovar. CA x8d COMPARISON: 01/27/2019 TECHNIQUE: CT scan of the abdomen and pelvis performed using helical scanning technique with dynamic intravenous contrast injection. No oral contrast. Images reviewed with lung, soft tissue, and bone windows. Reconstructed coronal and sagittal MPR images reviewed. Delayed images for evaluation of the urinary system also acquired. All images stored on PACS. All CT scanners at this facility use dose modulation, iterative reconstruction, and/or weight based d osing when appropriate to reduce radiation dose to as low as reasonably achievable (ALARA). [facility]: Dose Right [facility]: CareDose [facility]: Dose Right [facility]: Teradose 4D [facility]: Neocoretech CONTRAST TYPE AND DOSE: contrast/concentration: Isovue 350.00 mg/ml; Total Contrast Delivered: 46.0 ml; Total Saline Delivered: 60.0 ml RENAL FUNCTION: GFR > 60. RADIATION DOSE: CT Rad equipment meets quality standard of care and radiation dose reduction techniq ues were employed. CTDIvol: 4.8 mGy. DLP: 468 mGy-cm.. LIMITATIONS: None. FINDINGS: LOWER CHEST: Trace bilateral pleural effusions. LIVER: Normal size. No masses. No dilated ducts. SPLEEN: Normal size. No focal lesions. PANCREAS: No masses. No significant calcifications. No adjacent inflammation or peripancreatic fluid collections. Pancreatic duct not dilated. GALLBLADDER: No identified stones by CT criteria. No inflammatory changes to suggest cholecystitis. ADRENAL GLANDS: No significant masses or asymmetry. RIGHT KIDNEY AND URETER: No solid masses. No significant calcifications. No hydronephrosis or hyd roureter. LEFT KIDNEY AND URETER: No solid masses. No significant calcifications. No hydronephrosis or hydr oureter. AORTA AND VESSELS: No aneurysm. No dissection. Renal arteries, SMA, celiac without stenosis. RETROPERITONEUM: No retroperitoneal adenopathy, hemorrhage or masses. BOWEL AND PERITONEAL CAVITY: No masses or inflammatory changes. The bowel is diffusely filled with a ir and contrast without overt distention. There is gas and stool present to the rectum. Moderate vo lume four-quadrant ascites. Minimal intraperitoneal free air (series 3, image 32). APPENDIX: Not clearly visualized. PELVIS: No mass. Postoperative findings of recent hysterectomy. Normal bladder. ABDOMINAL WALL: No masses. No hernias. BONES: No significant or acute findings. OTHER: No other significant finding. IMPRESSION: 1. There is moderate volume four-quadrant ascites and minimal intraperitoneal free air, findings likely related to recent surgery. 2. Postoperative findings of recent hysterectomy. 3. The bowel is diffusely filled with air and contrast without overt distention. There is gas and st ool present to the rectum. TECHNICAL DOCUMENTATION: JOB ID: [id number] Quality ID # [id number]: Final reports with documentation of one or more dose reduction techniques (e.g., Au tomated exposure control, adjustment of the mA and/or kV according to patient size, use of iterative reconstruction technique) 2010 [employer]- All Rights Reserved Reading location - IP/workstation name: [email or web address]
[2019-02-21] MEDS ORDERED: POTASSIUM CHLORIDE 10 MEQ CAPSULE.ER PO ONE (16:07)
[2019-02-21] MEDS ORDERED: CEFTRIAXONE 1 GM/D5W RTU 1 GM/50 ML RTUPB IV ONE (16:37)
[2019-02-21 18:37] VITALS: BP 137/52
== END 2019-02-21 18:38 | disposition home or self-care (01) ==
LOC: ER 10:19
DX: G89.18 Other acute postprocedural pain (principal); R10.9 Unspecified abdominal pain; R11.0 Nausea; E87.6 Hypokalemia; R53.1 Weakness; R19.7 Diarrhea, unspecified; R10.12 Left upper quadrant pain; Z98.890 Other specified postprocedural states; Z87.891 Personal history of nicotine dependence; I10 Essential (primary) hypertension
CPT/HCPCS: 96376; 99284; 96361; 96375; 96365; 36415; 87040; 87086; 83605; 83690; 85025; 87077; 80053; 81001; 74022; 74177; J2405; J7030; A9270; J0696; 87186

== ENCOUNTER 2019-02-26 11:54 | Emergency (ER) | payer MEDICARE ==
[2019-02-26] MEDS ORDERED: NORMAL SALINE 1000 ML 1,000 ML IV ONE (12:33)
--- NOTE | 2019-02-26 12:33 | ER Document Report ---
ED Medical Screen (RME) - General Chief Complaint: Abdominal Pain Stated Complaint: DIARRHEA/ABDOMINAL PAIN/VAGINAL BLEEDING Time Seen by Provider: 02/26/19 12:29 Primary Care Provider: YUN QUINN DO [Primary Care Provider] - Follow up as needed TRAVEL OUTSIDE OF THE [place] IN LAST 30 DAYS: No - HPI Notes: 02/26/19 12:33 Patient is a 79-year-old female who presents emergency department complaining of continued lower abdominal pain, decreased p.o. intake, watery diarrhea after having surgery for ovarian cancer 13 days ago which I suspect to be a total hysterectomy at [facility]. Pt was eval'd by her OBGYN after discharge from our ED about 4 days ago. Her OBGYN told her to come here today as she is also having light vaginal bleeding. Denies any headache, fever, neck pain, URI, sore throat, chest pain, palpitations, syncope, cough, shortness of breath, wheeze, dyspnea, urinary retention, dysuria, hematuria, or rash. I have treated and performed a rapid initial assessment of this patient. A comprehensive ED assessment and evaluation of the patient, analysis of test results and completion of medical decision making process will be conducted by additional ED providers. PHYSICAL EXAMINATION: GENERAL: appears uncomfortable and holding her abd. no resp distress LUNGS: Breath sounds clear to auscultation bilaterally and equal. No wheezes rales or rhonchi. HEART: Regular rate and rhythm without murmurs, rubs, gallops. ABDOMEN: BS present. + lower abd tenderness. Extremities: No cyanosis, clubbing, or edema b/l. NEUROLOGICAL: Normal speech, normal gait. PSYCH: Normal mood, normal affect. - Related Data Allergies/Adverse Reactions: Any type medication Allergy (Severe, Uncoded 06/17/18 09:21) Facial swelling and Problems Breathing Past Medical History - Past Medical History Cardiac Medical History: Reports: Hx Hypercholesterolemia, Hx Hypertension Denies: Hx Coronary Artery Disease, Hx Heart Attack Pulmonary Medical History: Denies: Hx Asthma, Hx Bronchitis, Hx COPD, Hx Pneumonia Neurological Medical History: Denies: Hx Cerebrovascular Accident, Hx Seizures Renal/ Medical History: Denies: Hx Peritoneal Dialysis Musculoskeltal Medical History: Reports Hx Arthritis Past Surgical History: Reports: Hx Hysterectomy. Denies: Hx Pacemaker - Immunizations Hx Diphtheria, Pertussis, Tetanus Vaccination: No Influenza Administration Date for 08/2017 - 01/2018 Season: 11/22/17 Physical Exam - Vital signs Vitals: Temp Pulse Resp BP Pulse Ox 98.0 F 97 16 119/58 L 95 02/26/19 12:06 02/26/19 12:06 02/26/19 12:06 02/26/19 12:06 02/26/19 12:06 Course - Vital Signs Vital signs: Temp Pulse Resp BP Pulse Ox 98.0 F 97 16 119/58 L 95 02/26/19 12:06 02/26/19 12:06 02/26/19 12:06 02/26/19 12:06 02/26/19 12:06 Doctor's Discharge - Discharge Referrals: YUN QUINN DO [Primary Care Provider] - Follow up as needed
[2019-02-26 13:23] LABS: HEMATOCRIT 34.7 % (36.0-47.0); HEMOGLOBIN 11.9 g/dL (12.0-15.5); MEAN CORPUSCULAR HEMOGLOBIN 33.3 pg (27.0-33.4); MEAN CORPUSCULAR HGB CONC 34.3 g/dL (32.0-36.0); MEAN CORPUSCULAR VOLUME 97 fl (80-97); PLATELET COUNT 429 10^3/uL (150-450); RED BLOOD COUNT 3.57 10^6/uL (3.72-5.28); RED CELL DISTRIBUTION WIDTH 18.6 % (11.5-14.0); WHITE BLOOD COUNT 22.1 10^3/uL (4.0-10.5)
[2019-02-26 13:36] LABS: ALANINE AMINOTRANSFERASE 28 U/L (9-52); ALKALINE PHOSPHATASE 246 U/L (38-126); ANION GAP 11 (5-19); ASPARTATE AMINO TRANSFERASE 25 U/L (14-36); BILIRUBIN,DIRECT 0.4 mg/dL (0.0-0.4); BILIRUBIN,TOTAL 0.6 mg/dL (0.2-1.3); BLOOD UREA NITROGEN 20 mg/dL (7-20); CALCIUM 8.7 mg/dL (8.4-10.2); CARBON DIOXIDE 28 mmol/L (22-30); CHLORIDE 96 mmol/L (98-107); GLUCOSE 153 mg/dL (75-110); POTASSIUM 3.7 mmol/L (3.6-5.0); SODIUM 135.1 mmol/L (137-145); TOTAL PROTEIN 6.1 g/dL (6.3-8.2)
[2019-02-26 13:44] LABS: ABSOLUTE LYMPHOCYTES# (MANUAL) 1.1 10^3/uL (0.5-4.7); ABSOLUTE MONOCYTES # (MANUAL) 0.4 10^3/uL (0.1-1.4); ABSOLUTE NEUTROPHILS# (MANUAL) 20.6 10^3/uL (1.7-8.2); BAND NEUTROPHILS % (MANUAL) 2 % (3-5); BASOPHILS % (MANUAL) 0 % (0-2); EOSINOPHILS % (MANUAL) 0 % (0-6); LYMPHOCYTES % (MANUAL) 5 % (13-45); MONOCYTES % (MANUAL) 2 % (3-13); SEGMENTED NEUTROPHILS % (MAN) 91 % (42-78); TOTAL CELLS COUNTED 100
[2019-02-26 13:45] LABS: ANISOCYTOSIS 2+; PLATELET CLUMPS PRESENT; PLATELET COMMENT ADEQUATE
--- NOTE | 2019-02-26 14:13 | ER Document Report ---
ED General - General Chief Complaint: Abdominal Pain Stated Complaint: DIARRHEA/ABDOMINAL PAIN/VAGINAL BLEEDING Time Seen by Provider: 02/26/19 12:29 Primary Care Provider: YUN QUINN DO [Primary Care Provider] - Follow up as needed Notes: Patient's been having diarrhea for the past 3-4 days. She is having stools about every 15 minutes. Has noticed some pink color to the diarrhea, but no actual blood present in it. She is also noticed some vaginal bleeding as well. Patient underwent surgery 2 weeks ago at [facility] where she had a total hysterectomy and all her pelvic organs removed because of ovarian cancer. She is had 3 previous chemotherapy treatments, but is no longer getting any further treatment as her findings are that she has an untreatable stage of cancer. Patient does not recall having been on an antibiotic since her surgery. She was seen here by me just 5 days ago, which was about a week postop, for abdominal pain and she was noted to have some fever. She was worked up in not much was found except that she did have some fever. She was given 1 g of Rocephin IV at that time and was referred to her surgeon who saw her the following day in their office in [place]. Patient has a follow-up appointment with that doctor on February 28. Patient says her appetite is poor and is not eating or drinking well. Anytime she does, she has diarrhea patient has some generalized abdominal pain. No chest pain. Patient says that she has had some pink color to the diarrhea. Not actually seeing any blood in the diarrhea. She is seeing some blood coming from her vagina. Has not been vomiting. Not aware of any fever. TRAVEL OUTSIDE OF THE [place] IN LAST 30 DAYS: No - Related Data Allergies/Adverse Reactions: Any type medication Allergy (Severe, Uncoded 06/17/18 09:21) Facial swelling and Problems Breathing Past Medical History - Social History Smoking Status: Former Smoker Frequency of alcohol use: None Drug Abuse: None Family History: Reviewed & Not Pertinent Patient has suicidal ideation: No Patient has homicidal ideation: No - Past Medical History Cardiac Medical History: Reports: Hx Hypercholesterolemia, Hx Hypertension Musculoskeletal Medical History: Reports Hx Arthritis Past Surgical History: Reports: Hx Hysterectomy - Immunizations Hx Diphtheria, Pertussis, Tetanus Vaccination: No Review of Systems - Review of Systems Notes: REVIEW OF SYSTEMS: CONSTITUTIONAL : Denies fever. EENT: Denies eye, ear, nose or mouth or throat pain or other symptoms. CARDIOVASCULAR: Denies chest pain. RESPIRATORY: Denies cough, chest congestion, or shortness of breath. GASTROINTESTINAL: See HPI. GENITOURINARY: Denies difficulty or painful urinating, urinary frequency, blood in urine. MUSCULOSKELETAL: Denies back or neck pain. Denies joint pain or swelling. SKIN: Denies rash or skin lesions. NEUROLOGICAL: Denies LOC or altered mental status. Denies headache. Denies sensory loss or motor deficits. ALL OTHER SYSTEMS REVIEWED AND NEGATIVE. Physical Exam - Vital signs Vitals: Temp Pulse Resp BP Pulse Ox 98.0 F 97 16 119/58 L 95 02/26/19 12:06 02/26/19 12:06 02/26/19 12:06 02/26/19 12:06 02/26/19 12:06 Interpretation: Normal Notes: PHYSICAL EXAMINATION: GENERAL: Well-appearing, in no acute distress. Vital signs are all essentially normal. HEAD: Atraumatic, normocephalic. EYES: Pupils equal round and reactive to light, extraocular movements intact. NECK: Normal range of motion, supple. LUNGS: Breath sounds clear and equal bilaterally. HEART: Regular rate and rhythm without murmurs. ABDOMEN: Soft, minor diffuse tenderness of the lower half of the abdomen. No guarding or rebound. Postsurgical (laparoscopy) procedural changes. BACK: No tenderness throughout entire back. EXTREMITIES: Normal range of motion without pain. NEUROLOGICAL: Normal speech, normal gait. Is able to walk, but is weak. Normal sensory, motor, and reflex exams. Awake, alert, and oriented x3. Cranial nerves normal. PSYCH: Normal mood, normal affect. Somewhat depressed. SKIN: Warm, dry, no rashes. Course - Re-evaluation Re-evalutation: 02/26/19 16:36 Lab studies obtained show a white count elevation to 22,100 with a shift. C. difficile examination is positive. Call patient's surgeon, Dr. Singleton, In [place] who is agreeable to accepting the patient in transfer there. Patient will be started on vancomycin. - Vital Signs Vital signs: Temp Pulse Resp BP Pulse Ox 99 F 89 16 125/60 100 02/26/19 16:00 02/26/19 16:00 02/26/19 16:00 02/26/19 16:00 02/26/19 16:00 - Laboratory Result Diagrams: 02/26/19 12:53 02/26/19 12:53 Laboratory results interpreted by me: 02/26/19 02/26/19 02/26/19 12:53 12:53 15:04 WBC 22.1 H RBC 3.57 L Hgb 11.9 L Hct 34.7 L RDW 18.6 H Seg Neuts % (Manual) 91 H Band Neutrophils % 2 L Lymphocytes % (Manual) 5 L Monocytes % (Manual) 2 L Abs Neuts (Manual) 20.6 H Sodium 135.1 L Chloride 96 L Glucose 153 H Alkaline Phosphatase 246 H Total Protein 6.1 L Albumin 3.0 L Urine Ketones 20 H Urine Urobilinogen 2.0 H Discharge - Discharge Clinical Impression: C. difficile diarrhea, Leukocytosis Condition: Fair Disposition: [facility] Referrals: YUN QUINN DO [Primary Care Provider] - Follow up as needed
[2019-02-26 15:36] LABS: APPEARANCE,URINE TURBID; BILIRUBIN,URINE NEGATIVE (NEGATIVE); COLOR,URINE AMBER; GLUCOSE, URINE NEGATIVE (NEGATIVE); KETONES,URINE 20 mg/dL (NEGATIVE); LEUKOCYTE ESTERASE,URINE NEGATIVE (NEGATIVE); NITRITE,URINE NEGATIVE (NEGATIVE); PROTEIN,URINE NEGATIVE (NEGATIVE); URINE SPECIFIC GRAVITY 1.019
[2019-02-26 16:01] VITALS: BP 125/60
[2019-02-26] MEDS ORDERED: VANCOMYCIN HCL INJ 1000 MG VIAL IV ONE (16:38)
[2019-02-26] MEDS ORDERED: RINGERS SOLUTION,LACTATED 1,000 ML IV ONE (16:41)
== END 2019-02-26 20:44 | disposition short-term general hospital (02) ==
LOC: ER 11:54
DX: A04.72 Enterocolitis due to Clostridium difficile, not specified as recurrent (principal); D72.829 Elevated white blood cell count, unspecified; R10.9 Unspecified abdominal pain; R19.7 Diarrhea, unspecified; N93.9 Abnormal uterine and vaginal bleeding, unspecified; R50.9 Fever, unspecified; R10.84 Generalized abdominal pain; Z87.891 Personal history of nicotine dependence; I10 Essential (primary) hypertension
CPT/HCPCS: 99284; 96361; 51701; 96365; 96366; 36415; 87045; 87086; 87205; 85025; 80053; 81001; 87493; J7030; J7120; J3370

== ENCOUNTER 2019-04-03 07:43 | Emergency (ER) | payer MEDICARE ==
[2019-04-03 09:00] LABS: ABSOLUTE LYMPHOCYTES (AUTO) 1.4 10^3/uL (0.5-4.7); ABSOLUTE MONOCYTES (AUTO) 0.3 10^3/uL (0.1-1.4); ABSOLUTE NEUT (AUTO) 4.2 10^3/uL (1.7-8.2); BASOPHILS % (AUTO) 0.4 % (0-2); EOSINOPHILS % (AUTO) 0.2 % (0-6); HEMATOCRIT 25.4 % (36.0-47.0); HEMOGLOBIN 8.5 g/dL (12.0-15.5); LYMPHOCYTES % (AUTO) 23.7 % (13-45); MEAN CORPUSCULAR HEMOGLOBIN 32.7 pg (27.0-33.4); MEAN CORPUSCULAR HGB CONC 33.7 g/dL (32.0-36.0); MEAN CORPUSCULAR VOLUME 97 fl (80-97); MONOCYTES % (AUTO) 4.3 % (3-13); PLATELET COUNT 223 10^3/uL (150-450); RED BLOOD COUNT 2.61 10^6/uL (3.72-5.28); RED CELL DISTRIBUTION WIDTH 17.5 % (11.5-14.0); SEGMENTED NEUTROPHILS % (AUTO) 71.4 % (42-78); TOTAL CELLS COUNTED % (AUTO) 100 %; WHITE BLOOD COUNT 5.9 10^3/uL (4.0-10.5)
--- NOTE | 2019-04-03 09:07 | ER Document Report ---
ED General - General Chief Complaint: Diarrhea Stated Complaint: DIARRHEA Time Seen by Provider: 04/03/19 09:06 Primary Care Provider: YUN QUINN DO [Primary Care Provider] - Follow up in 3-5 days Mode of Arrival: Medic Information source: Patient, Relative - spouse Notes: Patient presents emergency department with complaints of diarrhea. Patient is a cancer patient currently under chemo. Patient was diagnosed with ovarian cancer received a hysterectomy February 13. She reports abdominal pain since that time. She reports she had them on Wednesday. She reports she was okay Wednesday but on she started having large amounts of diarrhea. gave her Imodium on Wednesday and is helped and her diarrhea has decreased. He reports she has not had anything to eat or drink today. She denies fever reports that abdominal pain the same since the surgery. She denies pain with void. Reports her diarrhea smells really bad possibly C. difficile again. She was diagnosed with C. difficile in February. She is finished vancomycin is no longer taking it. TRAVEL OUTSIDE OF THE [place] IN LAST 30 DAYS: No - HPI Onset: Other Onset/Duration: Persistent Quality of pain: Cramping Associated symptoms: Diarrhea Exacerbated by: Denies Relieved by: Denies Similar symptoms previously: Yes Recently seen / treated by doctor: No - Related Data Allergies/Adverse Reactions: aspirin Allergy (Verified 04/03/19 09:07) bleeding ibuprofen [From Advil] Allergy (Verified 04/03/19 09:08) bleeding Any type medication Allergy (Severe, Uncoded 04/03/19 07:58) Facial swelling and Problems Breathing Past Medical History - General Information source: Patient, Relative - Social History Smoking Status: Never Smoker Chew tobacco use (# tins/day): No Frequency of alcohol use: None Drug Abuse: None Lives with: Family Family History: Reviewed & Not Pertinent Patient has suicidal ideation: No Patient has homicidal ideation: No - Past Medical History Cardiac Medical History: Reports: Hx Hypercholesterolemia, Hx Hypertension Denies: Hx Coronary Artery Disease, Hx Heart Attack Pulmonary Medical History: Denies: Hx Asthma, Hx Bronchitis, Hx COPD, Hx Pneumonia Neurological Medical History: Denies: Hx Cerebrovascular Accident, Hx Seizures Renal/ Medical History: Denies: Hx Peritoneal Dialysis Malignancy Medical History: Reports: Hx Ovarian Cancer Musculoskeletal Medical History: Reports Hx Arthritis Past Surgical History: Reports: Hx Gynecologic Surgery, Hx Hysterectomy. Denies: Hx Pacemaker - Immunizations Hx Diphtheria, Pertussis, Tetanus Vaccination: No Review of Systems - Review of Systems Notes: Review HPI for review of systems., All other systems negative Physical Exam - Vital signs Vitals: Temp Pulse Resp BP Pulse Ox 98.1 F 105 H 18 122/72 98 04/03/19 07:45 04/03/19 07:45 04/03/19 07:45 04/03/19 07:45 04/03/19 07:45 - General General appearance: Alert In distress: None - HEENT Head: Normocephalic Eyes: Normal Conjunctiva: Normal Extraocular movements intact: Yes Ears: Normal External canal: Normal Nasal: Normal Mouth/Lips: Normal Mucous membranes: Moist Neck: Normal, Supple - Respiratory Respiratory status: No respiratory distress Chest status: Nontender Breath sounds: Normal Chest palpation: Normal - Cardiovascular Rhythm: Regular, Tachycardia Heart sounds: Normal auscultation Murmur: No - Abdominal Inspection: Normal Distension: No distension Bowel sounds: Normal Tenderness: Tender - Generalized TTP Organomegaly: No organomegaly - Extremities General upper extremity: Normal ROM General lower extremity: Normal ROM - Neurological Neuro grossly intact: Yes Cognition: Normal Orientation: AAOx4 Richar Coma Scale Eye Opening: Spontaneous Richar Coma Scale Verbal: Oriented Richar Coma Scale Motor: Obeys Commands Richar Coma Scale Total: 15 Speech: Normal Motor strength normal: LUE, RUE, LLE, RLE Sensory: Normal - Psychological Associated symptoms: Normal affect, Normal mood - Skin Skin Temperature: Warm Skin Moisture: Dry Skin Color: Normal Course - Re-evaluation Re-evalutation: 04/03/19 09:36 and patient instructed on plan of care patient declined pain medication at this time. Reports she takes oxycodone 5 mg for abdominal pain but does not want anything now. 04/03/19 12:43 Lab results were not very significantly abnormal. H/H Dropped from 11.9/34.7 on 02/26/19 to 8.5/25.4 today. Stool POC negative for blood Creatinine and BUN were normal. LFTs essentially normal except for slightly elevated alkaline phosphatase of 145 which is lower from previous alk phos on 02/26 and 02/21. WBC's. 5.9 NA 132.8, Mild hyponatremia. UA with positive nitrite. She ate applesauce and drinking fluids without vomiting or diarrhea. Plan to discharge home for UTI & diarrhea. 04/03/19 19:43 contacted patient's he reports she is doing very well - Vital Signs Vital signs: Temp Pulse Resp BP Pulse Ox 97.8 F 94 18 114/47 L 95 04/03/19 13:30 04/03/19 13:30 04/03/19 13:30 04/03/19 13:30 04/03/19 13:30 - Laboratory Result Diagrams: 04/03/19 08:45 04/03/19 08:45 Laboratory results interpreted by me: 04/03/19 04/03/19 04/03/19 08:45 08:45 10:13 RBC 2.61 L Hgb 8.5 L Hct 25.4 L RDW 17.5 H Sodium 132.8 L Chloride 97 L Calcium 8.3 L Alkaline Phosphatase 145 H Total Protein 6.0 L Albumin 3.1 L Urine Protein 100 H Urine Ketones 20 H Urine Nitrite POSITIVE H Ur Leukocyte Esterase TRACE H Discharge - Discharge Clinical Impression: Diarrhea, UTI (urinary tract infection), Mild hyponatremia Condition: Stable Disposition: HOME, SELF-CARE Instructions: Cephalexin ([facility]), Diarrhea, Nonspecific ([facility]), Urinary Tract Infection ([facility]) Additional Instructions: *You have been evaluated for diarrhea, UTI, Mild hyponatremia *Take medication as prescribed *Ensure adequate fluid intake as discussed to prevent dehydration *Follow up with a primary care provider within 3 days *Return to ED for worsening condition, changes, needs Prescriptions: Cephalexin Monohydrate [Keflex 500 mg Capsule] 500 mg PO QID #20 capsule Referrals: YUN QUINN DO [Primary Care Provider] - Follow up in 3-5 days
[2019-04-03 09:24] LABS: ALANINE AMINOTRANSFERASE 25 U/L (9-52); ALBUMIN 3.1 g/dL (3.5-5.0); ALKALINE PHOSPHATASE 145 U/L (38-126); ANION GAP 10 (5-19); ASPARTATE AMINO TRANSFERASE 20 U/L (14-36); BILIRUBIN,DIRECT 0.2 mg/dL (0.0-0.4); BILIRUBIN,TOTAL 0.6 mg/dL (0.2-1.3); BLOOD UREA NITROGEN 14 mg/dL (7-20); CALCIUM 8.3 mg/dL (8.4-10.2); CARBON DIOXIDE 26 mmol/L (22-30); CHLORIDE 97 mmol/L (98-107); GLUCOSE 97 mg/dL (75-110); POTASSIUM 3.6 mmol/L (3.6-5.0); SODIUM 132.8 mmol/L (137-145)
[2019-04-03] MEDS ORDERED: ONDANSETRON HCL INJ/PF 4 MG/2 ML SDV IV ONE (09:32)
[2019-04-03 10:33] LABS: APPEARANCE,URINE CLOUDY; BILIRUBIN,URINE NEGATIVE (NEGATIVE); COLOR,URINE AMBER; GLUCOSE, URINE NEGATIVE (NEGATIVE); KETONES,URINE 20 mg/dL (NEGATIVE); LEUKOCYTE ESTERASE,URINE TRACE (NEGATIVE); NITRITE,URINE POSITIVE (NEGATIVE); PROTEIN,URINE 100 mg/dL (NEGATIVE); URINE SPECIFIC GRAVITY 1.024; UROBILINOGEN,URINE NEGATIVE mg/dL (<2.0)
[2019-04-03] MEDS ORDERED: CEPHALEXIN 500 MG CAPSULE PO ONE (12:52)
[2019-04-03 13:32] VITALS: BP 114/47
== END 2019-04-03 13:34 | disposition home or self-care (01) ==
LOC: ER 07:43
DX: R19.7 Diarrhea, unspecified (principal); N39.0 Urinary tract infection, site not specified; E87.6 Hypokalemia; R10.9 Unspecified abdominal pain; R10.817 Generalized abdominal tenderness; R00.0 Tachycardia, unspecified; I10 Essential (primary) hypertension; C56.9 Malignant neoplasm of unspecified ovary; Z79.899 Other long term (current) drug therapy; Z90.710 Acquired absence of both cervix and uterus; Z88.6 Allergy status to analgesic agent; Z88.8 Allergy status to other drugs, medicaments and biological substances; Z79.891 Long term (current) use of opiate analgesic; R74.0 Nonspecific elevation of levels of transaminase and lactic acid dehydrogenase [LDH]
CPT/HCPCS: 99284; 96374; 36415; 85025; 80053; 81001; A9270; J2405

== ENCOUNTER 2019-04-07 21:48 | Inpatient (IN) | payer MEDICARE ==
[2019-04-07] MEDS ORDERED: NORMAL SALINE 500 ML IV ONE (22:20)
--- NOTE | 2019-04-07 22:21 | ER Document Report ---
ED General - General Chief Complaint: Abdominal Pain Stated Complaint: LOWER ABDOMINAL PAIN Time Seen by Provider: 04/07/19 22:19 Notes: Patient is a 79-year-old female presents with complaint of feeling weak and having diarrhea for last 3 days. Patient is a complicated past few months of history. Patient had ovarian cancer. She was taken care of at [facility] where she had complete hysterectomy. She was then pl aced on chemo and followed by Dr. Vazquez. She later developed C. difficile. She was readmitted back at [facility] last month in February. She was eventually released. Approximately a week ago she was diagnosed here with UTI and placed in antibiotic. She has been on an antibiotic for 6 days. The last 3 days she is developed diarrhea and felt very weak and nauseous. TRAVEL OUTSIDE OF THE [place] IN LAST 30 DAYS: No - Related Data Allergies/Adverse Reactions: aspirin Allergy (Verified 04/03/19 09:07) bleeding ibuprofen [From Advil] Allergy (Verified 04/03/19 09:08) bleeding Any type medication Allergy (Severe, Uncoded 04/03/19 07:58) Facial swelling and Problems Breathing Past Medical History - Social History Smoking Status: Never Smoker Frequency of alcohol use: None Drug Abuse: None Family History: Reviewed & Not Pertinent - Past Medical History Cardiac Medical History: Reports: Hx Hypercholesterolemia, Hx Hypertension Denies: Hx Coronary Artery Disease, Hx Heart Attack Pulmonary Medical History: Denies: Hx Asthma, Hx Bronchitis, Hx COPD, Hx Pneumonia Neurological Medical History: Denies: Hx Cerebrovascular Accident, Hx Seizures Renal/ Medical History: Denies: Hx Peritoneal Dialysis Malignancy Medical History: Reports: Hx Ovarian Cancer Musculoskeletal Medical History: Reports Hx Arthritis Past Surgical History: Reports: Hx Gynecologic Surgery, Hx Hysterectomy. Denies: Hx Pacemaker - Immunizations Hx Diphtheria, Pertussis, Tetanus Vaccination: No Review of Systems - Review of Systems Notes: My Normal Review Basic REVIEW OF SYSTEMS: CONSTITUTIONAL : Denies fever, chills, or sweats. Denies recent illness. RESPIRATORY: Denies cough, cold, or chest congestion. Denies shortness of breath, difficulty breathing, or wheezing. GASTROINTESTINAL: Denies abdominal pain. recurrent diarrhea. GENITOURINARY: Denies difficulty urinating, painful urination, burning, frequency, or blood in urine. FEMALE GENITOURINARY: Hysterectomy approximately a month and a half ago MUSCULOSKELETAL: Denies neck or back pain or joint pain or swelling. SKIN: Denies rash or skin lesions. NEUROLOGICAL: Denies altered mental status or loss of consciousness. ALL OTHER SYSTEMS REVIEWED AND NEGATIVE. Physical Exam - Vital signs Vitals: Temp Pulse Resp BP Pulse Ox 99.4 F 94 14 100/64 100 04/07/19 21:48 04/07/19 21:48 04/07/19 21:48 04/07/19 21:48 04/07/19 21:48 - Notes Notes: General Appearance: Well nourished, alert, cooperative, no acute distress, no obvious discomfort. Vitals: reviewed, See vital signs table. Head: no swelling or tenderness to the head Eyes: PERRL, EOMI, Conjuctiva clear Mouth: No decreasd moisture Lungs: No wheezing, No rales, No rhonci, No accessory muscle use, good air exchange bilaterally. Heart: Normal rate, Regular rythm, No murmur, no rub Abdomen: Normal BS, soft, No rigidity, No abdominal tenderness, No guarding, no rebound Extremities: strength 5/5 in all extremities, good pulses in all extremities, no swelling or tenderness in the extremities, no edema. Skin: warm, dry, appropriate color, no rash Neuro: speech clear, oriented x 3, normal affect, responds appropriately to questions. Course - Re-evaluation Re-evalutation: 04/08/19 02:25 Patient C. difficile testing is positive. She has bandemia with weakness with metabolic acidosis and therefore I feel she is appropriate for admission. I did speak with Dr. Zaidi, hospitalist, who agrees to evaluate the patient for admission. She does have some pyuria and a urinalysis however she is Ellis been treated with Keflex and sure he has C. difficile and therefore I do not feel that adding any other antibiotics appropriate this time and I will send her urine for culture to see what it grows out first before we determine whether or nor further antibiotic treatment is needed. Dictation of this chart was performed using voice recognition software; therefore, there may be some unintended grammatical errors. - Vital Signs Vital signs: Temp Pulse Resp BP Pulse Ox 99.4 F 94 20 90/61 L 100 04/07/19 21:48 04/07/19 21:48 04/08/19 01:01 04/08/19 01:00 04/08/19 01:01 - Laboratory Result Diagrams: 04/07/19 22:00 04/07/19 22:00 Laboratory results interpreted by me: 04/07/19 04/07/19 04/07/19 22:00 22:00 22:55 WBC 15.6 H RBC 3.10 L Hgb 10.0 L Hct 29.9 L RDW 17.4 H Band Neutrophils % 7 H Lymphocytes % (Manual) 9 L Metamyelocytes % 1 H Abs Neuts (Manual) 12.9 H Sodium 128.2 L Potassium 3.1 L Chloride 95 L Carbon Dioxide 18 L BUN 34 H Est GFR ( Amer) 53 L Est GFR (Non-Af Amer) 44 L Glucose 173 H Lactic Acid 3.0 H Calcium 7.9 L Alkaline Phosphatase 131 H Total Protein 5.3 L Albumin 2.6 L Urine Protein Urine Ketones Urine Urobilinogen Ur Leukocyte Esterase 04/07/19 23:11 WBC RBC Hgb Hct RDW Band Neutrophils % Lymphocytes % (Manual) Metamyelocytes % Abs Neuts (Manual) Sodium Potassium Chloride Carbon Dioxide BUN Est GFR ( Amer) Est GFR (Non-Af Amer) Glucose Lactic Acid Calcium Alkaline Phosphatase Total Protein Albumin Urine Protein 30 H Urine Ketones TRACE H Urine Urobilinogen 2.0 H Ur Leukocyte Esterase SMALL H - EKG Interpretation by Me Additional EKG results interpreted by me: 04/07/19 22:59 EKG is reviewed and interpreted by me. EKG shows sinus rhythm with a rate of [address] segment elevation or depression. No ischemic T wave inversions. LA interval, QRS duration, QT intervals are within normal range. Old EKG for comparison is from June 17, 2018. Discharge - Discharge Clinical Impression: C. difficile diarrhea, Pyuria Diarrhea Qualifiers: Diarrhea type: infectious Qualified Code(s): A09 - Infectious gastroenteritis and colitis, unspecified Condition: Stable Disposition: ADMITTED OBSERVATION Admitting Provider: Dejuan (Hospitalist) Unit Admitted: Telemetry
[2019-04-07 22:27] LABS: HEMATOCRIT 29.9 % (36.0-47.0); MEAN CORPUSCULAR HEMOGLOBIN 32.2 pg (27.0-33.4); MEAN CORPUSCULAR HGB CONC 33.4 g/dL (32.0-36.0); MEAN CORPUSCULAR VOLUME 96 fl (80-97); PLATELET COUNT 274 10^3/uL (150-450); RED CELL DISTRIBUTION WIDTH 17.4 % (11.5-14.0); WHITE BLOOD COUNT 15.6 10^3/uL (4.0-10.5)
[2019-04-07 22:42] LABS: ABSOLUTE LYMPHOCYTES# (MANUAL) 1.4 10^3/uL (0.5-4.7); ABSOLUTE MONOCYTES # (MANUAL) 1.2 10^3/uL (0.1-1.4); ABSOLUTE NEUTROPHILS# (MANUAL) 12.9 10^3/uL (1.7-8.2); BAND NEUTROPHILS % (MANUAL) 7 % (3-5); BASOPHILS % (MANUAL) 0 % (0-2); EOSINOPHILS % (MANUAL) 0 % (0-6); LYMPHOCYTES % (MANUAL) 9 % (13-45); METAMYELOCYTES % (MANUAL) 1 % (0); MONOCYTES % (MANUAL) 8 % (3-13); SEGMENTED NEUTROPHILS % (MAN) 75 % (42-78); TOTAL CELLS COUNTED 100
[2019-04-07 22:43] LABS: ANISOCYTOSIS 1+; HYPOCHROMASIA SLIGHT; POIKILOCYTOSIS 1+; POLYCHROMASIA SLIGHT; TOXIC GRANULATION 1+; TOXIC VACUOLATION PRESENT
[2019-04-07 22:44] LABS: PLATELET COMMENT ADEQUATE
[2019-04-07 22:50] LABS: ALANINE AMINOTRANSFERASE 16 U/L (9-52); ALBUMIN 2.6 g/dL (3.5-5.0); ALKALINE PHOSPHATASE 131 U/L (38-126); ANION GAP 15 (5-19); ASPARTATE AMINO TRANSFERASE 17 U/L (14-36); BILIRUBIN,DIRECT 0.3 mg/dL (0.0-0.4); BILIRUBIN,TOTAL 0.4 mg/dL (0.2-1.3); BLOOD UREA NITROGEN 34 mg/dL (7-20); CALCIUM 7.9 mg/dL (8.4-10.2); CARBON DIOXIDE 18 mmol/L (22-30); CHLORIDE 95 mmol/L (98-107); GLUCOSE 173 mg/dL (75-110); POTASSIUM 3.1 mmol/L (3.6-5.0); SODIUM 128.2 mmol/L (137-145); TOTAL PROTEIN 5.3 g/dL (6.3-8.2)
[2019-04-07] MEDS ORDERED: POTASSIUM CHLORIDE 10 MEQ CAPSULE.ER PO ONE (23:32)
[2019-04-07 23:40] LABS: APPEARANCE,URINE CLOUDY; BILIRUBIN,URINE NEGATIVE (NEGATIVE); COLOR,URINE AMBER; GLUCOSE, URINE NEGATIVE (NEGATIVE); KETONES,URINE TRACE mg/dL (NEGATIVE); LEUKOCYTE ESTERASE,URINE SMALL (NEGATIVE); NITRITE,URINE NEGATIVE (NEGATIVE); PROTEIN,URINE 30 mg/dL (NEGATIVE); URINE SPECIFIC GRAVITY 1.025
[2019-04-08] MEDS ORDERED: METRONIDAZOLE 500 MG/NS RTU 500 MG/100 ML RTUPB IV ONE (00:45)
[2019-04-08] MEDS ORDERED: MAG HYDROX/AL HYDROX/SIMETH SUSP 30 ML UDCUP PO PRN (01:40)
[2019-04-08] MEDS ORDERED: TEMAZEPAM 7.5 MG CAPSULE PO PRN (01:40)
[2019-04-08] MEDS ORDERED: MORPHINE SULFATE 10 MG/ML INJ IV PRN (01:49)
[2019-04-08] MEDS ORDERED: HYDRALAZINE HCL INJ/PF 20 MG/1 ML SDV IV PRN (01:49)
[2019-04-08] MEDS ORDERED: ACETAMINOPHEN 325 MG TABLET PO PRN (01:49)
[2019-04-08 02:36] LABS: FREE T3 1.5 pg/mL (2.77-5.27); FREE T4 (FREE THYROXINE) 1.13 ng/dL (0.78-2.19)
[2019-04-08 02:50] LABS: THYROID STIMULATING HORMONE 3.28 uIU/mL (0.47-4.68)
[2019-04-08] MEDS ORDERED: VANCOMYCIN HCL INJ 500 MG VIAL ONE (03:15)
[2019-04-08] MEDS: POTASSI CL 20 MEQ/D5LR 1L 20 MEQ/1,000 ML RTUINJ IV PRN ×2 (03:24→08:26)
[2019-04-08] MEDS: VANCOMYCIN HCL INJ 500 MG VIAL PO SCH ×4 (03:24→21:35)
[2019-04-08] MEDS: ONDANSETRON HCL INJ/PF 4 MG/2 ML SDV IV PRN ×2 (04:04→08:20)
[2019-04-08] MEDS: HEPARIN SOD (PORCINE) 5,000 UNIT/ML 1 ML SYRINGE SUBCUT SCH ×3 (05:03→21:36)
[2019-04-08] MEDS ORDERED: CALCIUM CARBONATE 500 MG TAB.CHEW PO PRN (05:35)
--- NOTE | 2019-04-08 06:01 | PDOC H&P ---
History of Present Illness Admission Date/PCP: 04/08/19 00:58 YUN QUINN DO Patient complains of: Diarrhea History of Present Illness: ARMIDA WEBB is a 79 year old female who presented to the emergency room with a 2-week history of diarrhea. She admits that she has been having some problems with diarrhea for the last several months related to her recent diagnosis of ovarian cancer and surgical treatment including a complete hysterectomy with bilateral salpingo-oophorectomies followed by chemotherapy with Dr. Vazquez. She developed C. difficile enterocolitis in early February and was treated with significant improvement of her diarrhea on treatment with oral vancomycin. She developed new episodes of intermittent abdominal pain and diarrhea 2 weeks ago and 1 week prior to this visit, thinking she might have developed a recurrence of her C. difficile enterocolitis, she was seen in the emergency room here at [facility] for evaluation of her diarrhea and abdominal pain, was diagnosed with a urinary tract infection and treated wit h oral Keflex. Since that time her watery diarrhea has become severe with many episodes every day and the stool continues to have a very foul odor. She admits severe generalized abdominal cramping with episodes of diarrhea, moderate to severe persistent nausea (with secondary decreased oral intake) and severe weakness associated with her escalating diarrhea. She acknowledges the prior similar episode already mentioned and has not identified any other aggravating or ameliorating factors for her diarrhea. In the emergency room she was found to have a stool positive for C. difficile, a metabolic profile showed acute renal injury as well as hypokalemia and hyponatremia and her CBC revealed an elevated white blood count. She was subsequently admitted to the hospital for further evaluation and treatment. Past Medical History Cardiac Medical History: Reports: Hyperlipidema, Hypertension Denies: Coronary Artery Disease, Myocardial Infarction Pulmonary Medical History: Denies: Asthma, Bronchitis, Chronic Obstructive Pulmonary Disease (COPD), Pneumonia EENT Medical History: Reports: Eyes - Prescription lenses Denies: Cataracts, Ears - Hearing aids Neurological Medical History: Denies: Hemorrhagic CVA, Ischemic CVA, Seizures Endocrine Medical History: Denies: Diabetes Mellitus Type 1, Diabetes Mellitus Type 2, Hyperthyroidism, Hypothyroidism Renal/ Medical History: Denies: Chronic Kidney Disease, Nephrolithiasis Malignancy Medical History: Reports: Ovarian Cancer GI Medical History: Denies: Cirrhosis, Crohn's Disease, Hepatitis, Ulcerative Colitis Musculoskeltal Medical History: Reports: Arthritis Denies: Gout Skin Medical History: Denies: Eczema, Psoriasis Psychiatric Medical History: Denies: Alcohol Dependency, Substance Abuse, Tobacco Dependency Traumatic Medical History: Reports: None Hematology: Denies: Anemia, Bleeding Tendencies Infectious Medical History: Reports: Clostridium Difficile Past Surgical History Past Surgical History: Reports: Hysterectomy Social History Information Source: Patient Lives with: Spouse/Significant other Smoking Status: Never Smoker Frequency of Alcohol Use: None Hx Recreational Drug Use: No Drugs: None Hx Prescription Drug Abuse: No - Advance Directive Resuscitation Status: Full Code Surrogate healthcare decision maker:: Mac Simons Family History Family History: Malignancy. denies: CAD, DM, Hypertension Parental Family History Reviewed: Yes Children Family History Reviewed: No Sibling(s) Family History Reviewed.: Yes Medication/Allergy Home Medications: Metoprolol Tartrate [Lopressor 25 Mg Tablet] 25 mg PO BID 11/25/12 Simvastatin [Zocor 20 mg Tablet] 20 mg PO QHS 11/25/12 Acetaminophen [Tylenol 325 mg Tablet] 2 tab PO DAILY 06/13/18 Nifedipine [Procardia] 30 mg PO DAILY 07/29/18 Cephalexin Monohydrate [Keflex 500 mg Capsule] 500 mg PO QID #20 capsule 04/03/19 Oxycodone HCl [Oxy-Ir 5 mg Tablet] 5 mg PO Q6HP PRN 04/03/19 Vancomycin HCl 500 mg PO QID 04/03/19 Allergies/Adverse Reactions: aspirin Allergy (Verified 04/03/19 09:07) bleeding ibuprofen [From Advil] Allergy (Verified 04/03/19 09:08) bleeding Any type medication Allergy (Severe, Uncoded 04/03/19 07:58) Facial swelling and Problems Breathing Review of Systems Constitutional: PRESENT: as per HPI, anorexia - Secondary to severe nausea, weakness - Generalized. ABSENT: chills, fever(s) Eyes: ABSENT: visual disturbances, other - Ocular pain Ears: ABSENT: hearing changes, other - Ear pain Nose, Mouth, and Throat: ABSENT: mouth pain, sore throat Cardiovascular: ABSENT: chest pain, dyspnea on exertion, palpitations Respiratory: ABSENT: cough, dyspnea Gastrointestinal: PRESENT: as per HPI, abdominal pain, diarrhea, nausea. ABSENT: constipation, hematochezia, melena, vomiting Genitourinary: ABSENT: dysuria, hematuria Musculoskeletal: ABSENT: back pain, joint swelling, muscle weakness Integumentary: ABSENT: pruritus, rash Neurological: ABSENT: confusion, convulsions, focal weakness, memory loss, syncope Psychiatric: ABSENT: anxiety, depression Endocrine: ABSENT: cold intolerance, heat intolerance Hematologic/Lymphatic: ABSENT: easy bleeding, easy bruising Physical Exam Vital Signs: Temp Pulse Resp BP Pulse Ox 99.4 F 94 19 96/58 L 100 04/07/19 21:48 04/07/19 21:48 04/07/19 23:01 04/07/19 23:00 04/07/19 23:01 Intake & Output 04/06/19 04/07/19 04/08/19 23:59 23:59 23:59 Intake Total 500 Balance 500 Weight 34.927 kg General appearance: PRESENT: cooperative, mild distress - Appears ill Head exam: PRESENT: atraumatic, normocephalic Eye exam: ABSENT: conjunctival injection, nystagmus, scleral icterus Ear exam: PRESENT: normal external ear exam. ABSENT: bleeding, drainage Mouth exam: PRESENT: dry mucosa, neck supple Neck exam: ABSENT: thyromegaly, tracheal deviation Respiratory exam: PRESENT: clear to auscultation elba, symmetrical, unlabored Cardiovascular exam: PRESENT: RRR, tachycardia. ABSENT: clicks, gallop, rubs Pulses: PRESENT: normal radial pulses, normal dorsalis pedis pul Vascular exam: ABSENT: normal capillary refill - Capillary refill prolonged to greater than 3 seconds, pallor GI/Abdominal exam: PRESENT: hypoactive bowel sounds, soft. ABSENT: distended, tenderness Rectal exam: PRESENT: deferred Extremities exam: ABSENT: joint swelling, pedal edema Musculoskeletal exam: ABSENT: full ROM, normal inspection Neurological exam: PRESENT: alert, oriented to person, oriented to place, oriented to time, oriented to situation, CN II-XII grossly intact. ABSENT: motor sensory deficit Psychiatric exam: PRESENT: appropriate affect, normal mood Skin exam: PRESENT: dry, intact, warm. ABSENT: jaundice, rash, urticaria Results Laboratory Results: 04/07/19 22:00 04/07/19 22:00 04/07/19 04/07/19 04/07/19 22:00 22:00 22:55 WBC 15.6 H RBC 3.10 L Hgb 10.0 L Hct 29.9 L MCV 96 MCH 32.2 MCHC 33.4 RDW 17.4 H Plt Count 274 Seg Neutrophils % Not Reportable Lymphocytes % Not Reportable Monocytes % Not Reportable Eosinophils % Not Reportable Basophils % Not Reportable Absolute Neutrophils Not Reportable Absolute Lymphocytes Not Reportable Absolute Monocytes Not Reportable Absolute Eosinophils Not Reportable Absolute Basophils Not Reportable Sodium 128.2 L Potassium 3.1 L Chloride 95 L Carbon Dioxide 18 L Anion Gap 15 BUN 34 H Creatinine 1.19 Est GFR ( Amer) 53 L Est GFR (Non-Af Amer) 44 L Glucose 173 H Lactic Acid 3.0 H Calcium 7.9 L Total Bilirubin 0.4 AST 17 ALT 16 Alkaline Phosphatase 131 H Total Protein 5.3 L Albumin 2.6 L Urine Color Urine Appearance Urine pH Ur Specific [place] Urine Protein Urine Glucose (UA) Urine Ketones Urine Blood Urine Nitrite Ur Leukocyte Esterase Urine WBC (Auto) Urine RBC (Auto) 04/07/19 23:11 WBC RBC Hgb Hct MCV MCH MCHC RDW Plt Count Seg Neutrophils % Lymphocytes % Monocytes % Eosinophils % Basophils % Absolute Neutrophils Absolute Lymphocytes Absolute Monocytes Absolute Eosinophils Absolute Basophils Sodium Potassium Chloride Carbon Dioxide Anion Gap BUN Creatinine Est GFR ( Amer) Est GFR (Non-Af Amer) Glucose Lactic Acid Calcium Total Bilirubin AST ALT Alkaline Phosphatase Total Protein Albumin Urine Color JHOAN Urine Appearance CLOUDY Urine pH 5.0 Ur Specific [place] 1.025 Urine Protein 30 H Urine Glucose (UA) NEGATIVE Urine Ketones TRACE H Urine Blood NEGATIVE Urine Nitrite NEGATIVE Ur Leukocyte Esterase SMALL H Urine WBC (Auto) 64 Urine RBC (Auto) 3 04/07/19 22:00 Troponin I < 0.012 Assessment and Plan - Diagnosis (1) Enterocolitis due to Clostridium difficile, recurrent Is this a current diagnosis for this admission?: Yes Plan: Patient be treated with vancomycin 125 mg p.o. every 6 hours as initial therapy x10 days then this should be followed by 20 days of Rifaximin per current CDC recommendations. Metronidazole is no longer recommended and any form (IV or oral) for initial treatment of C. difficile enteritis in adults. She will also receive IV fluids (balanced electrolyte solution) as part of supportive and symptomatic care. Her nausea will be treated with Zofran intravenously and her abdominal pain will be treated with morphine sulfate 2 to 4 mg IV every 2 hours as needed on a sliding scale basis. Daily CBC will be used to evaluate her therapy/recovery. (2) Acute kidney injury (nontraumatic) Is this a current diagnosis for this admission?: Yes Plan: Patient was treated with balanced electrolyte solution IV fluids. Daily metabolic profile and magnesium levels will be followed to evaluate her dontae very/therapy. (3) Acute hyponatremia Is this a current diagnosis for this admission?: Yes Plan: Patient be treated with IV fluids as noted above. Data laboratory will be drawn as noted above. (4) Hypokalemia, gastrointestinal losses Is this a current diagnosis for this admission?: Yes Plan: Patient be treated with balanced IV fluids as noted above. Daily laboratory evaluations will be obtained as noted as above. - Time Time Spent with patient: 25-34 minutes Medications reviewed and adjusted accordingly: Yes Anticipated discharge: Home - Inpatient Certification Based on my medical assessment, after consideration of the patient's comorbi dities, presenting symptoms, or acuity I expect that the services needed warrant INPATIENT care.: Yes I certify that my determination is in accordance with my understanding of Medicare's requirements for reasonable and necessary INPATIENT services [42 CFR 412.3e].: Yes Medical Necessity: Failure to Improve With Outpatient Therapy, Significant Comorbidiites Make Outpatient Treatment Too Risky, Need Close Monitoring Due to Risk of Patient Decompensation, Need For IV Fluids, Need For Continuous Telemetry Monitoring, Need for Pain Control, Risk of Complication if Not Cared For in Hospital
[2019-04-08 07:38] LABS: HEMATOCRIT 30.5 % (36.0-47.0); HEMOGLOBIN 10.2 g/dL (12.0-15.5); MEAN CORPUSCULAR HEMOGLOBIN 32.2 pg (27.0-33.4); MEAN CORPUSCULAR HGB CONC 33.4 g/dL (32.0-36.0); MEAN CORPUSCULAR VOLUME 97 fl (80-97); PLATELET COUNT 238 10^3/uL (150-450); RED BLOOD COUNT 3.17 10^6/uL (3.72-5.28); RED CELL DISTRIBUTION WIDTH 17.3 % (11.5-14.0); WHITE BLOOD COUNT 21.6 10^3/uL (4.0-10.5)
[2019-04-08 07:39] LABS: ALANINE AMINOTRANSFERASE 19 U/L (9-52); ALBUMIN 2.2 g/dL (3.5-5.0); ALKALINE PHOSPHATASE 113 U/L (38-126); ANION GAP 12 (5-19); ASPARTATE AMINO TRANSFERASE 14 U/L (14-36); BILIRUBIN,DIRECT 0.2 mg/dL (0.0-0.4); BILIRUBIN,TOTAL 0.2 mg/dL (0.2-1.3); BLOOD UREA NITROGEN 36 mg/dL (7-20); CALCIUM 7.9 mg/dL (8.4-10.2); CARBON DIOXIDE 20 mmol/L (22-30); CHLORIDE 97 mmol/L (98-107); GLUCOSE 309 mg/dL (75-110); SODIUM 128.8 mmol/L (137-145); TOTAL PROTEIN 4.5 g/dL (6.3-8.2)
[2019-04-08 07:43] LABS: POTASSIUM 4.7 mmol/L (3.6-5.0)
[2019-04-08 08:10] LABS: ABSOLUTE LYMPHOCYTES# (MANUAL) 2.6 10^3/uL (0.5-4.7); ABSOLUTE MONOCYTES # (MANUAL) 1.5 10^3/uL (0.1-1.4); ABSOLUTE NEUTROPHILS# (MANUAL) 17.5 10^3/uL (1.7-8.2); ANISOCYTOSIS 1+; BAND NEUTROPHILS % (MANUAL) 4 % (3-5); BASOPHILS % (MANUAL) 0 % (0-2); EOSINOPHILS % (MANUAL) 0 % (0-6); LYMPHOCYTES % (MANUAL) 12 % (13-45); MONOCYTES % (MANUAL) 7 % (3-13); PLATELET CLUMPS PRESENT; PLATELET COMMENT ADEQUATE; POLYCHROMASIA SLIGHT; SEGMENTED NEUTROPHILS % (MAN) 77 % (42-78); TOTAL CELLS COUNTED 100; TOXIC GRANULATION 2+
[2019-04-08] MEDS: METOCLOPRAMIDE HCL INJ/PF 10 MG/2 ML SDV IV SCH ×4 (08:24→22:04)
--- NOTE | 2019-04-08 08:44 | EKG REPORT ---
SEVERITY:- BORDERLINE ECG - SINUS RHYTHM BORDERLINE T ABNORMALITIES, DIFFUSE LEADS : Confirmed by: Mike Naylor MD 08-Apr-2019 08:40:57
--- NOTE | 2019-04-08 09:10 | PDOC PROGRESS REPORT ---
Subjective Progress Note for:: 04/08/19 Subjective:: 79 year old female who presented to the emergency room with a 2-week history of diarrhea. She admits that she has been having some problems with diarrhea for the last several months related to her recent diagnosis of ovarian cancer and surgical treatment including a complete hysterectomy with bilateral salpingo- oophorectomies followed by chemotherapy with Dr. Vazquez. She developed C. difficile enterocolitis in early February and was treated with significant impro vement of her diarrhea on treatment with oral vancomycin. She developed new episodes of intermittent abdominal pain and diarrhea 2 weeks ago and 1 week prior to this visit, thinking she might have developed a recurrence of her C. difficile enterocolitis, she was seen in the emergency room here at [facility] for evaluation of her diarrhea and abdominal pain, was diagnosed with a urinary tract infection and treated with oral Keflex. Since that time her watery diarrhea has become severe with many episodes every day and the stool continues to have a very foul odor. She admits severe generalized abdominal cramping with episodes of diarrhea, moderate to severe persistent nausea (with secondary decreased oral intake) and severe weakness associated with her escalating diarrhea. She acknowledges the prior similar episode already mentioned and has not identified any other aggravating or ameliorating factors for her diarrhea. In the emergency room she was found to have a stool positive for C. difficile, a metabolic profile showed acute renal injury as well as hypokalemia and hyponatremia and her CBC revealed an elevated white blood count. She was subsequently admitted to the hospital for further evaluation and treatment. 04/08/2019-no acute events since last. She has 3-4 lows foul-smelling stools from last night. Afebrile. Blood pressures are still running low 88/53. Lactic acid came down to 2.2. Potassium came up to 4.5. Is receiving vancomycin for C. difficile. WBC count is 15,610. Female comfortably in the bed complaining of weakness in the lower legs. Reason For Visit: RECURRENT C. DIFFICILE ENTEROCOLITIS, HYPONATREMIA Physical Exam Vital Signs: Temp Pulse Resp BP Pulse Ox 97.4 F 98 20 98/58 L 98 04/08/19 07:44 04/08/19 07:44 04/08/19 03:14 04/08/19 07:44 04/08/19 07:44 Intake & Output 04/07/19 04/08/19 04/09/19 06:59 06:59 06:59 Intake Total 680 1000 Balance 680 1000 Weight 36.4 kg General appearance: PRESENT: no acute distress, disheveled, thin Head exam: PRESENT: atraumatic Eye exam: PRESENT: PERRLA Mouth exam: PRESENT: moist, tongue midline Neck exam: ABSENT: carotid bruit, JVD, lymphadenopathy, thyromegaly Respiratory exam: PRESENT: decreased breath sounds Cardiovascular exam: PRESENT: RRR. ABSENT: diastolic murmur, rubs, systolic murmur GI/Abdominal exam: PRESENT: normal bowel sounds, soft. ABSENT: distended, guarding, mass, organolmegaly, rebound, tenderness Rectal exam: PRESENT: deferred Extremities exam: PRESENT: full ROM. ABSENT: calf tenderness, clubbing, pedal edema Neurological exam: PRESENT: alert, awake, oriented to person, oriented to place, oriented to time, oriented to situation, CN II-XII grossly intact. ABSENT: motor sensory deficit Psychiatric exam: PRESENT: appropriate affect, normal mood. ABSENT: homicidal ideation, suicidal ideation Results Laboratory Results: 04/08/19 06:43 04/08/19 06:43 04/07/19 04/07/19 04/07/19 22:00 22:00 22:00 WBC 15.6 H RBC 3.10 L Hgb 10.0 L Hct 29.9 L MCV 96 MCH 32.2 MCHC 33.4 RDW 17.4 H Plt Count 274 Seg Neutrophils % Not Reportable Lymphocytes % Not Reportable Monocytes % Not Reportable Eosinophils % Not Reportable Basophils % Not Reportable Absolute Neutrophils Not Reportable Absolute Lymphocytes Not Reportable Absolute Monocytes Not Reportable Absolute Eosinophils Not Reportable Absolute Basophils Not Reportable Sodium 128.2 L Potassium 3.1 L Chloride 95 L Carbon Dioxide 18 L Anion Gap 15 BUN 34 H Creatinine 1.19 Est GFR ( Amer) 53 L Est GFR (Non-Af Amer) 44 L Glucose 173 H Lactic Acid Calcium 7.9 L Magnesium Total Bilirubin 0.4 AST 17 ALT 16 Alkaline Phosphatase 131 H Total Protein 5.3 L Albumin 2.6 L TSH 3.28 Free T4 1.13 Free T3 pg/mL 1.50 L Urine Color Urine Appearance Urine pH Ur Specific [place] Urine Protein Urine Glucose (UA) Urine Ketones Urine Blood Urine Nitrite Ur Leukocyte Esterase Urine WBC (Auto) Urine RBC (Auto) 04/07/19 04/07/19 04/08/19 22:55 23:11 02:11 WBC RBC Hgb Hct MCV MCH MCHC RDW Plt Count Seg Neutrophils % Lymphocytes % Monocytes % Eosinophils % Basophils % Absolute Neutrophils Absolute Lymphocytes Absolute Monocytes Absolute Eosinophils Absolute Basophils Sodium Potassium Chloride Carbon Dioxide Anion Gap BUN Creatinine Est GFR ( Amer) Est GFR (Non-Af Amer) Glucose Lactic Acid 3.0 H 2.2 H Calcium Magnesium Total Bilirubin AST ALT Alkaline Phosphatase Total Protein Albumin TSH Free T4 Free T3 pg/mL Urine Color JHOAN Urine Appearance CLOUDY Urine pH 5.0 Ur Specific [place] 1.025 Urine Protein 30 H Urine Glucose (UA) NEGATIVE Urine Ketones TRACE H Urine Blood NEGATIVE Urine Nitrite NEGATIVE Ur Leukocyte Esterase SMALL H Urine WBC (Auto) 64 Urine RBC (Auto) 3 04/08/19 04/08/19 04/08/19 06:43 06:43 06:43 WBC 21.6 H RBC 3.17 L Hgb 10.2 L Hct 30.5 L MCV 97 MCH 32.2 MCHC 33.4 RDW 17.3 H Plt Count 238 Seg Neutrophils % Not Reportable Lymphocytes % Not Reportable Monocytes % Not Reportable Eosinophils % Not Reportable Basophils % Not Reportable Absolute Neutrophils Not Reportable Absolute Lymphocytes Not Reportable Absolute Monocytes Not Reportable Absolute Eosinophils Not Reportable Absolute Basophils Not Reportable Sodium Potassium Chloride Carbon Dioxide Anion Gap BUN Creatinine Est GFR ( Amer) Est GFR (Non-Af Amer) Glucose Lactic Acid 2.2 H Cancelled Calcium Magnesium Total Bilirubin AST ALT Alkaline Phosphatase Total Protein Albumin TSH Free T4 Free T3 pg/mL Urine Color Urine Appearance Urine pH Ur Specific [place] Urine Protein Urine Glucose (UA) Urine Ketones Urine Blood Urine Nitrite Ur Leukocyte Esterase Urine WBC (Auto) Urine RBC (Auto) 04/08/19 06:43 WBC RBC Hgb Hct MCV MCH MCHC RDW Plt Count Seg Neutrophils % Lymphocytes % Monocytes % Eosinophils % Basophils % Absolute Neutrophils Absolute Lymphocytes Absolute Monocytes Absolute Eosinophils Absolute Basophils Sodium 128.8 L Potassium 4.7 D Chloride 97 L Carbon Dioxide 20 L Anion Gap 12 BUN 36 H Creatinine 1.10 Est GFR ( Amer) 58 L Est GFR (Non-Af Amer) 48 L Glucose 309 H Lactic Acid Calcium 7.9 L Magnesium 2.2 Total Bilirubin 0.2 AST 14 ALT 19 Alkaline Phosphatase 113 Total Protein 4.5 L Albumin 2.2 L TSH Free T4 Free T3 pg/mL Urine Color Urine Appearance Urine pH Ur Specific [place] Urine Protein Urine Glucose (UA) Urine Ketones Urine Blood Urine Nitrite Ur Leukocyte Esterase Urine WBC (Auto) Urine RBC (Auto) 04/07/19 22:00 Troponin I < 0.012 Assessment and Plan - Diagnosis (1) Enterocolitis due to Clostridium difficile, recurrent Is this a current diagnosis for this admission?: Yes Plan: Patient be treated with vancomycin 125 mg p.o. every 6 hours as initial therapy x10 days then this should be followed by 20 days of Rifaximin per current CDC recommendations. Metronidazole is no longer recommended and any form (IV or oral) for initial treatment of C. difficile enteritis in adults. She will also receive IV fluids (balanced electrolyte solution) as part of supportive and symptomatic care. Her nausea will be treated with Zofran intravenously and her abdominal pain will be treated with morphine sulfate 2 to 4 mg IV every 2 hours as needed on a sliding scale basis. Daily CBC will be used to evaluate her therapy/recovery. 04/08/2019 patient is admitted with enterocolitis with C. difficile diarrhea on p.o. vancomycin 125 mg every 6 hrs. Continued to have a foul-smelling loose stools. Plan is to continue the p.o. vancomycin for a week. And to recheck C. difficile. Presently on IV Zofran. Plan to do the daily labs. (2) Acute kidney injury (nontraumatic) Is this a current diagnosis for this admission?: Yes Plan: Patient was treated with balanced electrolyte solution IV fluids. Daily metabolic profile and magnesium levels will be followed to evaluate her recovery/therapy. 04/08/2019-patient serum creatinine is 1.1 on admission it is 1.19 her baseline creatinine is around 0.6. Acute kidney injury most likely secondary to severe diarrhea. She is receiving IV fluids. Plan to repeat the labs tomorrow. (3) Hypokalemia, gastrointestinal losses Is this a current diagnosis for this admission?: Yes Plan: Patient be treated with balanced IV fluids as noted above. Daily laboratory evaluations will be obtained as noted as above. 04/08/2019-serum potassium level came up to 4.7 today. Presently on IV potassium supplementation plan is to decrease continue potassium. Plan is to repeat the labs tomorrow. (4) Acute hyponatremia Is this a current diagnosis for this admission?: Yes Plan: Patient be treated with IV fluids as noted above. Data laboratory will be drawn as noted above. 02/06/2019-serum potassium level is 128.8. Hyponatremia most likely secondary to severe diarrhea. Patient receiving IV fluids. Plan is to recheck the labs tomorrow. - Time Time Spent with patient: 15-24 minutes Medications reviewed and adjusted accordingly: Yes Anticipated discharge: Home
[2019-04-08] MEDS: NORMAL SALINE 1000 ML 1,000 ML IV PRN ×2 (10:29→22:36)
[2019-04-08] MEDS: METOPROLOL TARTRATE 25 MG TABLET PO SCH ×2 (10:30→18:37)
[2019-04-08] MEDS: FAMOTIDINE INJ/PF 20 MG/2 ML SDV IV SCH ×2 (10:34→22:04)
[2019-04-08] MEDS ORDERED: OXYCODONE HCL IR 5 MG TABLET PO PRN (15:56)
[2019-04-08] MEDS ORDERED: SIMVASTATIN 10 MG TABLET PO SCH (22:00)
[2019-04-08] MEDS ORDERED: VANCOMYCIN HCL INJ 500 MG VIAL PR ONE (22:00)
[2019-04-08] MEDS ORDERED: NORMAL SALINE 1000 ML 1,000 ML IV ONE (22:00)
[2019-04-09 01:07] VITALS: BP 102/58
[2019-04-09] MEDS ORDERED: VANCOMYCIN HCL INJ 500 MG VIAL PR SCH (03:00)
[2019-04-09] MEDS ORDERED: PHENYLEPHRINE HCL INJ/PF 10 MG/1 ML SDV ONE (03:16)
[2019-04-09] MEDS ORDERED: EPINEPHRINE INJ/PF 1 MG/1 ML AMPULE ONE (03:18)
--- NOTE | 2019-04-09 03:24 | PDOC CONSULTATION ---
Consultation Consult Date: 04/09/19 Provider Consulted: MARGARITA DUMONT History of Present Illness Admission Date/PCP: 04/08/19 00:58 YUN QUINN DO History of Present Illness: ARMIDA WEBB is a 79 year old female with C. difficilis in need of IV access Past Medical History Cardiac Medical History: Reports: Hyperlipidema, Hypertension Denies: Coronary Artery Disease, Myocardial Infarction Pulmonary Medical History: Denies: Asthma, Bronchitis, Chronic Obstructive Pulmonary Disease (COPD), Pneumonia EENT Medical History: Reports: Eyes - Prescription lenses Denies: Cataracts, Ears - Hearing aids Neurological Medical History: Denies: Hemorrhagic CVA, Ischemic CVA, Seizures Endocrine Medical History: Denies: Diabetes Mellitus Type 1, Diabetes Mellitus Type 2, Hyperthyroidism, Hypothyroidism Renal/ Medical History: Denies: Chronic Kidney Disease, Nephrolithiasis Malignancy Medical History: Reports: Ovarian Cancer GI Medical History: Denies: Cirrhosis, Crohn's Disease, Hepatitis, Ulcerative Colitis Musculoskeltal Medical History: Reports: Arthritis Denies: Gout Skin Medical History: Denies: Eczema, Psoriasis Psychiatric Medical History: Denies: Alcohol Dependency, Substance Abuse, Tobacco Dependency Traumatic Medical History: Reports: None Hematology: Denies: Anemia, Bleeding Tendencies Infectious Medical History: Reports: Clostridium Difficile Past Surgical History Past Surgical History: Reports: Hysterectomy Denies: Pacemaker Social History Lives with: Spouse/Significant other Smoking Status: Never Smoker Last Time Smoked: 2005 Frequency of Alcohol Use: None Hx Recreational Drug Use: No Drugs: None Hx Prescription Drug Abuse: No - Advance Directive Resuscitation Status: Full Code Family History Family History: Malignancy. denies: CAD, DM, Hypertension Parental Family History Reviewed: No Children Family History Reviewed: No Sibling(s) Family History Reviewed.: No Medication/Allergy Home Medications: Metoprolol Tartrate [Lopressor 25 mg Tablet] 25 mg PO Q12 04/08/19 Nifedipine [Procardia Xl 30 mg Tablet] 30 mg PO DAILY 04/08/19 Oxycodone HCl [Oxy-Ir 5 mg Tablet] 5 mg PO Q6HP PRN 04/08/19 Simvastatin [Zocor 20 mg Tablet] 20 mg PO QHS 04/08/19 Allergies/Adverse Reactions: aspirin Allergy (Verified 04/03/19 09:07) bleeding ibuprofen [From Advil] Allergy (Verified 04/03/19 09:08) bleeding Any type medication Allergy (Severe, Uncoded 04/03/19 07:58) Facial swelling and Problems Breathing Physical Exam Vital Signs: Temp Pulse Resp BP Pulse Ox 96 F L 110 H 28 H 102/58 L 96 04/09/19 01:05 04/09/19 01:05 04/09/19 01:05 04/09/19 01:05 04/09/19 01:05 Intake & Output 04/07/19 04/08/19 04/09/19 06:59 06:59 06:59 Intake Total 680 2238 Balance 680 2238 Weight 36.4 kg General appearance: PRESENT: other - non-responsive Cardiovascular exam: PRESENT: other - no pulses appreciated Results Laboratory Results: 04/08/19 04/08/19 04/08/19 06:43 06:43 06:43 WBC 21.6 H RBC 3.17 L Hgb 10.2 L Hct 30.5 L MCV 97 MCH 32.2 MCHC 33.4 RDW 17.3 H Plt Count 238 Seg Neutrophils % Not Reportable Lymphocytes % Not Reportable Monocytes % Not Reportable Eosinophils % Not Reportable Basophils % Not Reportable Absolute Neutrophils Not Reportable Absolute Lymphocytes Not Reportable Absolute Monocytes Not Reportable Absolute Eosinophils Not Reportable Absolute Basophils Not Reportable Sodium Potassium Chloride Carbon Dioxide Anion Gap BUN Creatinine Est GFR ( Amer) Est GFR (Non-Af Amer) Glucose Lactic Acid 2.2 H Cancelled Calcium Magnesium Total Bilirubin AST ALT Alkaline Phosphatase Total Protein Albumin 04/08/19 06:43 WBC RBC Hgb Hct MCV MCH MCHC RDW Plt Count Seg Neutrophils % Lymphocytes % Monocytes % Eosinophils % Basophils % Absolute Neutrophils Absolute Lymphocytes Absolute Monocytes Absolute Eosinophils Absolute Basophils Sodium 128.8 L Potassium 4.7 D Chloride 97 L Carbon Dioxide 20 L Anion Gap 12 BUN 36 H Creatinine 1.10 Est GFR ( Amer) 58 L Est GFR (Non-Af Amer) 48 L Glucose 309 H Lactic Acid Calcium 7.9 L Magnesium 2.2 Total Bilirubin 0.2 AST 14 ALT 19 Alkaline Phosphatase 113 Total Protein 4.5 L Albumin 2.2 L 04/07/19 22:00 Troponin I < 0.012 Assessment & Plan - Diagnosis (1) Need for intravenous access Is this a current diagnosis for this admission?: Yes - Plan Summary Plan Summary: A/ Need IV acceess P/ Plan placement of femoral IV line emergently
--- NOTE | 2019-04-09 03:25 | Operative Report ---
Nonrecallable Operative Report DATE OF SURGERY: 04/09/19 PREOPERATIVE DIAGNOSIS: need IV access POSTOPERATIVE DIAGNOSIS: same OPERATION: Right Femoral CVL SURGEON: MARGARITA DUMONT ANESTHESIA: Other - none TISSUE REMOVED OR ALTERED: n/a COMPLICATIONS: n/a ESTIMATED BLOOD LOSS: n/a INTRAOPERATIVE FINDINGS: see above PROCEDURE: see dictation
[2019-04-09] MEDS ORDERED: PROPOFOL INJ 200 MG/20 ML VIAL IV ONE (03:38)
[2019-04-09 03:50] LABS: BLOOD UREA NITROGEN 36 mg/dL (7-20); CHLORIDE 111 mmol/L (98-107); GLUCOSE 117 mg/dL (75-110); SODIUM 135.1 mmol/L (137-145)
[2019-04-09 03:55] LABS: ANION GAP 18 (5-19)
[2019-04-09] MEDS ORDERED: MIDAZOLAM HCL 50 MG/100 ML RTUINJ ONE (04:08)
[2019-04-09 04:09] LABS: CALCIUM 6.8 mg/dL (8.4-10.2); CARBON DIOXIDE 6 mmol/L (22-30); POTASSIUM 6.5 mmol/L (3.6-5.0)
[2019-04-09 04:15] LABS: ARTERIAL BLOOD BASE EXCESS -26.1 mmol/L; ARTERIAL BLOOD H2CO3 0.61 mmol/L (1.05-1.35); ARTERIAL BLOOD HCO3 4.2 mmol/L (20-24); ARTERIAL BLOOD PO2 141.3 mmHg (80-100); ARTERIAL BLOOD TOTAL CO2 4.9 mmol/L (21-25)
[2019-04-09 04:16] LABS: ARTERIAL BLOOD FIO2 40%
[2019-04-09 04:16] LABS: HEMATOCRIT 23.9 % (36.0-47.0); MEAN CORPUSCULAR HEMOGLOBIN 31.4 pg (27.0-33.4); RED BLOOD COUNT 2.21 10^6/uL (3.72-5.28); RED CELL DISTRIBUTION WIDTH 18.1 % (11.5-14.0)
[2019-04-09 04:17] LABS: ARTERIAL BLOOD PCO2 20.4 mmHg (35-45); ARTERIAL BLOOD PH 6.94 (7.35-7.45)
[2019-04-09] MEDS ORDERED: SODIUM BICARBONATE 8.4% INJ 50 MEQ/50 ML DISP.SYRIN ONE ×2 (04:19→04:26)
[2019-04-09 04:22] LABS: HEMOGLOBIN 6.9 g/dL (12.0-15.5)
[2019-04-09 04:23] LABS: MEAN CORPUSCULAR VOLUME 108 fl (80-97); PLATELET COUNT 37 10^3/uL (150-450)
[2019-04-09] MEDS ORDERED: PROPOFOL 1,000 MG/100 ML INFUS..BTL IV ONE (04:27)
[2019-04-09] MEDS ORDERED: NOREPINEPHRINE BITARTRATE INJ/PF 4 MG/4 ML SDV IV ONE (04:34)
[2019-04-09 04:35] LABS: ABSOLUTE LYMPHOCYTES# (MANUAL) 7.6 10^3/uL (0.5-4.7); ABSOLUTE MONOCYTES # (MANUAL) 6.3 10^3/uL (0.1-1.4); ABSOLUTE NEUTROPHILS# (MANUAL) 54.9 10^3/uL (1.7-8.2); BASOPHILS % (MANUAL) 0 % (0-2); EOSINOPHILS % (MANUAL) 1 % (0-6); LYMPHOCYTES % (MANUAL) 11 % (13-45); MONOCYTES % (MANUAL) 9 % (3-13); NUCLEATED RED BLOOD CELLS 4 /100 WBC (0); SEGMENTED NEUTROPHILS % (MAN) 34 % (42-78); TOTAL CELLS COUNTED 100
[2019-04-09 04:44] LABS: PLATELET COMMENT DECREASED; PLATELET GIANT PRESENT
[2019-04-09 04:45] LABS: TOXIC GRANULATION 2+; TOXIC VACUOLATION PRESENT
[2019-04-09 04:47] LABS: ANISOCYTOSIS 2+; BURR CELLS 2+
[2019-04-09 04:48] LABS: HYPOCHROMASIA 1+; POLYCHROMASIA SLIGHT; SCHISTOCYTES SLIGHT
[2019-04-09] MEDS ORDERED: VASOPRESSIN INJ 20 UNIT/1 ML VIAL ONE (04:49)
[2019-04-09 04:52] LABS: BAND NEUTROPHILS % (MANUAL) 22 % (3-5); METAMYELOCYTES % (MANUAL) 11 % (0)
[2019-04-09 04:53] LABS: MYELOCYTES % (MANUAL) 10 % (0); PROMYELOCYTES % (MANUAL) 2 % (0)
--- NOTE | 2019-04-09 04:54 | RADIOLOGY REPORT (SQ) ---
EXAM DESCRIPTION: XR CHEST 1 VIEW COMPLETED DATE/TME: 04/09/2019 00:00 CLINICAL HISTORY: 79 years, Female, ET Tube/NG Placement COMPARISON: 02/20/2016 abdomen and chest NUMBER OF VIEWS: 2 TECHNIQUE: AP chest and abdomen LIMITATIONS: None. FINDINGS: Heart size normal. Artifact overlies the thorax. Endotracheal tube with the tip approximately 2.1 cm above the wilmar. Enteric tube with the tip in the body of the stomach. Central venous catheter in the right inguinal region with the tip slightly to the right of midline at the L4 level. Nondilated air-filled loops of large and small bowel. Evaluation for free air limited on a supine view. Lungs are clear. Osteopenia IMPRESSION: Lines and catheters in place. No pneumothorax. Lungs are clear. Nonspecific bowel gas pattern copyright 2010 [employer]- All Rights Reserved
[2019-04-09 04:55] LABS: WHITE BLOOD COUNT 69.5 10^3/uL (4.0-10.5)
[2019-04-09] MEDS ORDERED: PROPOFOL 1,000 MG/100 ML INFUS..BTL IV PRN (04:55)
[2019-04-09] MEDS ORDERED: MIDAZOLAM HCL 50 MG/100 ML RTUINJ IV PRN (04:55)
[2019-04-09] MEDS ORDERED: DEXTROSE 5%-WATER 250 ML with PHENYLEPHRINE HCL 40 MG IV PRN ×2 (04:56)
[2019-04-09] MEDS ORDERED: LORAZEPAM INJ 2 MG/1 ML VIAL ONE (04:57)
[2019-04-09] MEDS ORDERED: MORPHINE SULFATE 10 MG/ML INJ ONE (04:57)
[2019-04-09] MEDS ORDERED: DEXTROSE 5%-WATER 250 ML with NOREPINEPHRINE BITARTRATE 4 MG IV PRN ×2 (04:57)
[2019-04-09] MEDS ORDERED: DEXTROSE 5%-WATER 1000 ML 1,000 ML with SODIUM BICARBONATE 150 MEQ IV PRN ×2 (04:58)
[2019-04-09] MEDS ORDERED: EPINEPHRINE INJ 1 MG/10 ML DISP.SYRIN ONE (05:00)
--- NOTE | 2019-04-09 05:06 | ER Document Report ---
Doctor's Note Notes: 04/09/19 05:04 I was asked by the house nursing supervisor riprap placing if I would be a second physician signature to make patient comfort care. Patient is now an inpatient patient. I took care of yesterday in the ER and admitted her for my concern for sepsis and C. difficile infection. Patient is a cancer patient currently chemotherapy. They need a second physician signature for comfort care because this is hospital policy. I therefore went and spoke with the patient's in the ICU and he is understanding of what comfort care is and does request this. I think comfort care is appropriate being that she is hypotensive and just went into cardiac arrest recently tonight. I therefore agreed to be the second signature for comfort care. Dictation of this chart was performed using voice recognition software; therefore, there may be some unintended grammatical errors.
[2019-04-09] MEDS ORDERED: LORAZEPAM INJ 2 MG/1 ML VIAL IV PRN (05:07)
[2019-04-09] MEDS ORDERED: MORPHINE SULFATE 10 MG/ML INJ IV PRN (05:07)
[2019-04-09] MEDS: VANCOMYCIN HCL INJ 500 MG VIAL PO SCH (05:12)
--- NOTE | 2019-04-09 06:36 | Progress Note ---
Provider Note Provider Note: Critical care note: 04/09/2019 Critical care FaceTime onset: 2:49 AM Critical care problem cardiac arrest "CODE BLUE" Patient was hypotensive and IV access had been lost. I had seen the patient at that time and requested a surgical consult for a central line placement. Short time later the surgery was about to place a central line when her femoral pulse was lost and patient was discovered to be pulseless. A CODE BLUE was called and standard resuscitation efforts were begun via ACLS protocols. Patient received 1 amp of epinephrine after an IO line had been placed. Within 2 to 3 minutes of the initial dose of epinephrine patient was found to have a pulse with a blood pressure of 100 systolic. The rhythm on the monitor was sinus with a probable bundle branch block. The surgeon was able to finish placing her central line and with her being continued on [id number] breathing as she was not breathing on her own, she was subsequently moved to the ICU for further evaluation and treatment. Critical care end time: 3:15 AM Total critical care time: 24 minutes
--- NOTE | 2019-04-09 06:42 | Death Summary ---
Summary Date : 04/09/19 Time of :: 05:47 Autopsy: No Resuscitation Status: Comfort Measures Only Primary Care Provider: Jesse Ray MD Consulting Provider: Dr. Vazquez - Final Diagnosis (1) Enterocolitis due to Clostridium difficile, recurrent Is this a current diagnosis for this admission?: Yes (2) Acute kidney injury (nontraumatic) Is this a current diagnosis for this admission?: Yes (3) Acute hyponatremia Is this a current diagnosis for this admission?: Yes (4) Hypokalemia, gastrointestinal losses Is this a current diagnosis for this admission?: Yes Hospital Course:: ARMIDA WEBB is a 79 year old female who presented to the emergency room with a 2-week history of diarrhea. She admits that she has been having some problems with diarrhea for the last several months related to her recent diagnosis of ovarian cancer and surgical treatment including a complete hysterectomy with bilateral salpingo-oophorectomies followed by chemotherapy with Dr. Vazquez. She developed C. difficile enterocolitis in early February and was treated with significant improvement of her diarrhea on treatment with oral vancomycin. She developed new episodes of intermittent abdominal pain and diarrhea 2 weeks ago and 1 week prior to this visit, thinking she might have developed a recurrence of her C. difficile enterocolitis, she was seen in the emergency room here at [facility] for evaluation of her diarrhea and abdominal pain, was diagnosed with a urinary tract infection and treated with oral Keflex. Since that time her watery diarrhea has become severe with many episodes every day and the stool continues to have a very foul odor. She admits severe generalized abdominal cramping with episodes of diarrhea, moderate to severe persistent nausea (with secondary decreased oral intake) and severe weakness associated with her escalating diarrhea. She acknowledges the prior similar episode already mentioned and has not identified any other aggravating or ameliorating factors for her diarrhea. In the emergency room she was found to have a stool positive for C. difficile, a metabolic profile showed acute renal injury as well as hypokalemia and hyponatremia and her CBC revealed an elevated white blood count. She was subsequently admitted to the hospital for further evaluation and treatment. She was continued on IV fluids and supportive measures however on the evening of 04/08/2019 she began worsening with hypoxia and then subsequent hypotension. She was treated with noninvasive advanced airway pressure support and increased IV fluids. She continued to worsen and developed a cardiac arrest on the auto tech of 04/09/2019. She was taken to the ICU where she was intubated and placed on a ventilator and she was also continued on multiple pressors to try to maintain a adequate blood pressure. Her medical power of document review attorney was informed of her situation and requested that she be made DO NOT RESUSCITATE and comfort measures only. He requested specifically withdrawal of current therapy. His request was complied with and the patient at 5:47 AM.
--- NOTE | 2019-04-10 07:53 | OPERATIVE REPORT E ---
Operative Report NAME: ARMIDA WEBB : 1940 AGE: 79Y DATE OF SURGERY: 04/09/2019 ROOM: 606 PREOPERATIVE DIAGNOSES: 1. CARDIAC ARREST. 2. NEED OF IV ACCESS. POSTOPERATIVE DIAGNOSES: 1. CARDIAC ARREST. 2. NEED OF IV ACCESS. OPERATION: Placement of right femoral central venous line. SURGEON: MARGARITA DUMONT M.D. LOAD OUT WORKER: none COMPLICATIONS: None. ANESTHESIA: None. INDICATION AND FINDINGS: A 79-year-old female in need of IV access and I was consulted for this reason. As I went to examine the patient, I decided to insert a right groin central venous line because of the patient's poor general condition. However, a femoral artery pulse could not be palpated in both groins or the neck. At this point, the Rapid Response Team was called and CPR was initiated as I proceeded with placement of a right groin central venous line. DESCRIPTION OF PROCEDURE: The procedure was done at bedside. The right groin was prepped and draped in usual fashion. A needle was inserted through the groin. The femoral vein was identified. A needle again was inserted through the needle into the femoral vein and the common iliac vein. The needle was then withdrawn. The insertion point of the guidewire was enlarged with a #11 blade and a tissue dilator, which was removed. The triple-lumen catheter was inserted over the guidewire into the right femoral vein and the iliac vein. The guidewire was removed. The distal and middle port of the central venous line were aspirated and flushed without difficulty. No good aspiration will be obtained from the proximal port. The line was secured to the skin with silk sutures. Sterile dressings were applied. The patient tolerated the procedure well. DICTATING PHYSICIAN: MARGARITA DUMONT M.D. [id number] PHY#: [id number] ID: [id number] JOB#: [id number] ACCT: [id number] cc:MARGARITA DUMONT M.D. > MTDD
[2019-04-10 12:49] LABS: PATH REVIEW PATHOLOGIST REVIEWED
== END 2019-04-09 05:47 | disposition left against medical advice (07) | DRG 372 ==
LOC: ER 21:48 → EH 04-08 00:58 → OBSVTOIN 04-08 00:58 → 5 04-08 02:27 → 3W 04-08 03:00 → ICU 04-09 03:38
PROVIDERS: ADMIT Emergency Medicine; ATTEND Emergency Medicine
PROC: 0BH17EZ Insertion of Endotracheal Airway into Trachea, Via Natural or Artificial Opening (ICD-10-PCS; 2019-04-08)
PROC: 5A1935Z Respiratory Ventilation, Less than 24 Consecutive Hours (ICD-10-PCS; 2019-04-08)
PROC: 06HM33Z Insertion of Infusion Device into Right Femoral Vein, Percutaneous Approach (ICD-10-PCS; principal; 2019-04-09)
DX: A04.71 Enterocolitis due to Clostridium difficile, recurrent (principal); N17.9 Acute kidney failure, unspecified; E87.1 Hypo-osmolality and hyponatremia; C56.9 Malignant neoplasm of unspecified ovary; E87.6 Hypokalemia; I46.9 Cardiac arrest, cause unspecified; I10 Essential (primary) hypertension; Z51.5 Encounter for palliative care; Z90.710 Acquired absence of both cervix and uterus; Z88.6 Allergy status to analgesic agent; E78.5 Hyperlipidemia, unspecified; Z88.8 Allergy status to other drugs, medicaments and biological substances; Z66 Do not resuscitate
CPT/HCPCS: 36415; 71045; 80048; 80053; 81001; 82803; 83605; 83735; 84439; 84443; 84481; 84484; 85025; 87040; 87086; 87493; 93005; 93010; 94002; 94660; 96360; 99285; C1751; J0171; J2060; J2270; J2405; J2704; J2765; J3370; J3490; J7030; J7040; J7120; S0028